=== PATIENT | female | born 1960 | race Caucasian/White ===

== ENCOUNTER 2020-01-12 07:36 | Outpatient (REF) | payer OTHER, SELFPAY ==
[2020-01-12 11:28] LABS: Hematocrit 42.6 % (37-47); Hemoglobin 14.3 g/dl (12.0-16.0); Mean Corpuscular HGB Conc 33.6 g/dl (31.0-35.0); Mean Corpuscular Hemoglobin 33.5 pg (27.0-33.0); Mean Corpuscular Volume 99.8 fL (80-98); Platelet Count 198 X10*3/uL (160-400); Red Blood Count 4.27 X10*6/uL (4.20-5.50); Red Cell Distribution Width 12.3 % (11.0-16.0); White Blood Count 5.7 X10*3/uL (4.8-10.8)
[2020-01-12 11:45] LABS: Glucose Urine UA NEG (NEG); Leukocyte Esterase Urine NEG (NEG); Nitrite Urine NEG (NEG); PH 5.5 (5.0-8.0); Specific Gravity - Urine 1.025 (1.005-1.025); Urine Blood 2+ (NEG); Urine Ketones 5 MG/DL (NEG); Urine Protein NEG (NEG-TRACE)
[2020-01-12 11:48] LABS: Appearance Urine CLEAR; Color Urine YELLOW
[2020-01-12 12:02] LABS: Alanine Aminotransferase 29 U/L (0-31); Albumin Level 4.5 g/dL (3.5-5.0); Alkaline Phosphatase 42 U/L (39-117); Anion Gap 11 (12-20); Aspartate Amino Transferase 20 U/L (5-31); Bilirubin Total 0.7 mg/dL (0.0-1.0); Blood Urea Nitrogen 19 mg/dL (9-16); Calcium 9.1 mg/dL (8.4-10.2); Carbon Dioxide 28 mmol/L (22-29); Chloride 106 mmol/L (96-108); Cholesterol 287 mg/dL; Estimated Glomerular Filt Rate > 60; Glucose Fasting 84 mg/dL (60-99); HDL Cholesterol 92 mg/dL; LDL Cholesterol Calculated 185 mg/dl; Potassium 4.5 mmol/l (3.3-5.1); Sodium 140 mmol/L (135-145); Total Protein 6.9 g/dL (6.5-8.0); Triglycerides 53 mg/dL
[2020-01-12 12:30] LABS: Squamous Epithelial Cell Urine 1+ /LPF
== END 2020-01-12 07:37 | disposition home or self-care (01) ==
LOC: HO.HMGCLDS 07:36
PROVIDERS: PCP Internal Medicine; Visit Provider Internal Medicine
DX: Z00.00 Encounter for general adult medical examination without abnormal findings (principal); M81.0 Age-related osteoporosis without current pathological fracture; E78.2 Mixed hyperlipidemia
CPT/HCPCS: 36415; 80053; 80061; 81001; 82306; 85027

== ENCOUNTER → 2020-01-17 08:59 | Outpatient (BNVA) | payer OTHER, SELFPAY | PROVIDERS: PCP Internal Medicine; Visit Provider Student in an Organized Health Care Education/Training Program | DX: Z76.89 Persons encountering health services in other specified circumstances (principal) ==

== ENCOUNTER 2020-03-04 08:49 | Outpatient (REF) | payer OTHER, SELFPAY ==
--- NOTE | 2020-03-04 08:54 | MM_ITS ---
EXAMINATION: MM SCREENING DIGITAL BREAST TOMOSYNTHESIS, BILATERAL CLINICAL INFORMATION: Screening. Asymptomatic. The lifetime risk of breast cancer based on the Tyrer-Cuzick Model is 6%. COMPARISON: Mammography: 02/27/2019, 12/28/2017 TECHNIQUE: Digital breast tomosynthesis is performed in both the craniocaudal and mediolateral oblique views along with computer-aided detection (CAD). Synthesized 2D images are generated from the tomosynthesis. FINDINGS: There are scattered areas of fibroglandular density (ACR BI-RADS breast composition Category b). There are no significant masses, abnormal calcifications, or other abnormalities. The axilla and skin contours are unremarkable. No significant changes. MM/MM tomosynthesis screening BI IMPRESSION: No mammographic evidence of malignancy. ASSESSMENT: BI-RADS 1: Negative RECOMMENDATION: Routine annual mammography screening. This patient's information was entered into a reminder system with a target due date for their next mammogram.
== END 2020-03-04 08:50 | disposition home or self-care (01) ==
LOC: HO.MAMMO 08:49
PROVIDERS: PCP Internal Medicine; Visit Provider Internal Medicine
DX: Z12.31 Encounter for screening mammogram for malignant neoplasm of breast (principal)
CPT/HCPCS: 77063; 77067

== ENCOUNTER 2020-04-11 06:40 | Outpatient (REF) | payer OTHER, SELFPAY ==
[2020-04-11 11:59] LABS: Alanine Aminotransferase 29 U/L (0-31); Albumin Level 4.4 g/dL (3.5-5.0); Alkaline Phosphatase 45 U/L (39-117); Anion Gap 12 (12-20); Aspartate Amino Transferase 23 U/L (5-31); Bilirubin Total 0.7 mg/dL (0.0-1.0); Blood Urea Nitrogen 16 mg/dL (9-16); Calcium 8.6 mg/dL (8.4-10.2); Carbon Dioxide 28 mmol/L (22-29); Chloride 104 mmol/L (96-108); Cholesterol 225 mg/dL; Estimated Glomerular Filt Rate > 60; Glucose Fasting 86 mg/dL (60-99); HDL Cholesterol 90 mg/dL; LDL Cholesterol Calculated 122 mg/dl; Sodium 140 mmol/L (135-145); Total Protein 6.6 g/dL (6.5-8.0); Triglycerides 67 mg/dL
[2020-04-16 16:07] LABS: Vitamin D 25-OH, D2 <4 ng/mL; Vitamin D 25-OH, D3 38 ng/mL; Vitamin D 25-OH, Total 38 ng/mL (30-100)
== END 2020-04-11 06:41 | disposition home or self-care (01) ==
LOC: HO.HMGCLDS 06:40
PROVIDERS: Student in an Organized Health Care Education/Training Program; PCP Internal Medicine; Visit Provider Internal Medicine
DX: M81.0 Age-related osteoporosis without current pathological fracture (principal); E78.5 Hyperlipidemia, unspecified
CPT/HCPCS: 80053; 80061; 82306

== ENCOUNTER 2020-11-29 06:34 | Outpatient (REF) | payer OTHER, SELFPAY ==
[2020-11-29 11:39] LABS: Hematocrit 41.9 % (37-47); Mean Corpuscular HGB Conc 33.4 g/dl (31.0-35.0); Mean Corpuscular Hemoglobin 33.3 pg (27.0-33.0); Mean Corpuscular Volume 99.5 fL (80-98); Mean Platelet Volume 10.1 fL (9.4-12.3); Platelet Count 243 X10*3/uL (160-400); Red Blood Count 4.21 X10*6/uL (4.20-5.50); Red Cell Distribution Width 12.3 % (11.0-16.0); White Blood Count 7.2 X10*3/uL (4.8-10.8)
[2020-11-29 12:05] LABS: Alanine Aminotransferase 26 U/L (0-31); Albumin Level 4.4 g/dL (3.5-5.0); Alkaline Phosphatase 58 U/L (39-117); Anion Gap 13 (12-20); Aspartate Amino Transferase 20 U/L (5-31); Bilirubin Total 0.6 mg/dL (0.0-1.0); Blood Urea Nitrogen 16 mg/dL (9-16); Calcium 9.4 mg/dL (8.4-10.2); Carbon Dioxide 28 mmol/L (22-29); Chloride 105 mmol/L (96-108); Cholesterol 222 mg/dL; Estimated Glomerular Filt Rate > 60; Glucose Fasting 85 mg/dL (60-99); HDL Cholesterol 85 mg/dL; LDL Cholesterol Calculated 127 mg/dl; Potassium 4.9 mmol/L (3.3-5.1); Sodium 141 mmol/L (135-145); Total Protein 6.9 g/dL (6.5-8.0); Triglycerides 51 mg/dL
[2020-11-29 12:30] LABS: TSH reflex Free T4 1.08 uIU/mL (0.32-4.0)
== END 2020-11-29 06:35 | disposition home or self-care (01) ==
LOC: HO.HMGCLDS 06:34
PROVIDERS: PCP Internal Medicine; Visit Provider Internal Medicine
DX: Z00.00 Encounter for general adult medical examination without abnormal findings (principal); E78.5 Hyperlipidemia, unspecified; M81.0 Age-related osteoporosis without current pathological fracture
CPT/HCPCS: 36415; 80053; 80061; 84443; 85027

== ENCOUNTER 2021-01-06 06:55 | Outpatient (REF) | payer OTHER, SELFPAY ==
[2021-01-06 08:46] LABS: SARS COV2 IgG Negative (Negative)
== END 2021-01-06 06:56 | disposition home or self-care (01) ==
LOC: HO.LAB 06:55
PROVIDERS: PCP Internal Medicine; Visit Provider Internal Medicine
DX: Z20.822 Contact with and (suspected) exposure to COVID-19 (principal)
CPT/HCPCS: 36415; 86769

== ENCOUNTER → 2021-02-19 09:38 | Outpatient (BNVA) | payer OTHER, SELFPAY | PROVIDERS: PCP Internal Medicine; Visit Provider Nurse Practitioner Family ==

== ENCOUNTER 2021-05-19 08:14 | Outpatient (REF) | payer OTHER, SELFPAY ==
--- NOTE | ~2021-05-19 | MM_ITS ---
EXAMINATION: MM SCREENING DIGITAL BREAST TOMOSYNTHESIS, BILATERAL CLINICAL INFORMATION: Screening. Asymptomatic. The lifetime risk of breast cancer based on the Tyrer-Cuzick Model is 6%. COMPARISON: Mammography: 03/04/2020, 02/27/2019, 12/28/2017 TECHNIQUE: Digital breast tomosynthesis is performed in both the craniocaudal and mediolateral oblique views along with computer-aided detection (CAD). Synthesized 2D images are generated from the tomosynthesis. FINDINGS: There are scattered areas of fibroglandular density (ACR BI-RADS breast composition Category b). There are no significant masses, abnormal calcifications, or other abnormalities. Breast tissue borders on heterogeneously dense in the upper outer quadrants. Parenchymal pattern is similar to prior studies. There are no significant changes. MM/MM tomosynthesis screening BI IMPRESSION: No mammographic evidence of malignancy. ASSESSMENT: BI-RADS 1: Negative RECOMMENDATION: Routine annual mammography screening. This patient's information was entered into a reminder system with a target due date for their next mammogram.
== END 2021-05-19 08:15 | disposition home or self-care (01) ==
LOC: HO.MAMMO 08:14
PROVIDERS: PCP Internal Medicine; Visit Provider Internal Medicine
DX: Z12.31 Encounter for screening mammogram for malignant neoplasm of breast (principal)
CPT/HCPCS: 77063; 77067

== ENCOUNTER 2022-01-07 08:01 | Outpatient (REF) | payer OTHER, SELFPAY ==
--- NOTE | ~2022-01-07 | MM_ITS ---
EXAMINATION: BONE DENSITOMETRY CLINICAL INDICATION: Age-related osteoporosis without current pathological fracture. COMPARISON: Previous BD dated 01/01/2020 and baseline BD dated 11/04/1999. TECHNIQUE: Using a [employer] DXA System (software version: 13.1) manufactured by [employer], dual-energy x-ray absorptiometry was performed of the lumbar spine and left hip. The images are of good technical quality. Summary results are attached. FINDINGS: AP SPINE L1-L4: Current: BMD 0.867 g/cm2, Z-score -0.8, T-score -2.6, osteoporosis, 5.2% decrease from previous, 11.3% decrease from baseline (<5% change is not significant). Prior: BMD 0.915 g/cm2. Baseline: BMD 0.978 g/cm2. LEFT FEMUR, NECK: Current: BMD 0.829 g/cm2, Z-score 0.1, T-score -1.5, osteopenia. Prior: BMD 0.849 g/cm2. Baseline: BMD 0.871 g/cm2. LEFT FEMUR, TOTAL: Current: BMD 0.953 g/cm2, Z-score 0.9, T-score -0.4, normal, 0.9% decrease from previous, 1.4% decrease from baseline (<5% change is not significant). Prior: BMD 0.962 g/cm2. Baseline: BMD 0.967 g/cm2. IDENTIFIED RISK FACTORS: Early menopause, secondary osteoporosis. HISTORY OF FRACTURE: None listed. MEDICATIONS: Calcium supplements or multivitamin, vitamin D, bisphosphonate. MM/XR DEXA axial skeleton IMPRESSION: 1. DIAGNOSIS: Osteoporosis based on the lowest T-score value of -2.6 in the lumbar spine applying World Health Organization criteria. 2. 10-YEAR FRACTURE RISK PREDICTION, FRAX: According to the guidelines, FRAX calculation should only be performed on patients in the osteopenia bone density category. Therefore, FRAX was not performed on this patient. 3. Treatment Recommendations: NOF guidelines recommend consideration for treatment in postmenopausal women and men age 50 and older presenting with the following: -A hip or vertebral (clinical or morphometric) fracture. -T-score less than or equal to -2.5 at the femoral neck or spine after appropriate evaluation to exclude secondary causes. -Low bone mass at the hip or spine and a 10-year fracture probability by FRAX of greater than or equal to 3% for hip fracture or greater than or equal to 20% for major osteoporotic fracture based on the [place] adapted WHO algorithm. 4. Other Recommendations: All treatment decisions require clinical judgment and consideration of individual patient factors, including patient preferences, comorbidities, previous drug use, risk factors not captured in the FRAX model (e.g. frailty, falls, vitamin D deficiency, increased bone turnover, interval significant decline in bone density) and possible under or overestimation of fracture risk by FRAX. Additional medical evaluation for secondary cause of low bone mineral density may be appropriate. FUTURE SCAN RECOMMENDATION: People with diagnosed cases of osteoporosis or at high risk for fracture should have regular bone mineral density tests. For patients eligible for Medicare, routine testing is allowed once every 2 years. The testing frequency can be increased to one year for patients who have rapidly progressing disease, those who are receiving or discontinuing medical therapy to restore bone mass, or have additional risk factors.
== END 2022-01-07 08:02 | disposition home or self-care (01) ==
LOC: HO.MAMMO 08:01
PROVIDERS: PCP Internal Medicine; Visit Provider Nurse Practitioner Family
DX: M81.0 Age-related osteoporosis without current pathological fracture (principal)
CPT/HCPCS: 77080

== ENCOUNTER 2022-02-18 13:57 | Outpatient (REF) | payer OTHER, SELFPAY ==
[2022-02-21 21:42] LABS: HPV mRNA E6/E7 Not Detected (Not Detected)
== END 2022-02-18 13:58 | disposition home or self-care (01) ==
LOC: HO.LNP 13:57
PROVIDERS: Visit Provider Internal Medicine
DX: Z01.419 Encounter for gynecological examination (general) (routine) without abnormal findings (principal); Z11.51 Encounter for screening for human papillomavirus (HPV)
CPT/HCPCS: 87624; 88142

== ENCOUNTER 2022-02-21 06:47 | Outpatient (REF) | payer OTHER, SELFPAY ==
[2022-02-21 11:49] LABS: MANUAL DIFF FLAG NO
[2022-02-21 11:55] LABS: Basophils Absolute Auto 0.1 X10*3/uL (0.0-0.2); Basophils Percent Auto 1.5 % (0-2); Eosinophils Absolute Auto 0.3 X10*3/uL (0.0-0.4); Eosinophils Percent Auto 4.4 % (0-4); Hematocrit 42.4 % (37.0-47.0); Hemoglobin 14.4 g/dl (12.0-16.0); Imm Gran Abs Auto 0.01 X10*3/uL (0.00-0.03); Imm Gran Pct Auto 0.1 % (0.0-0.4); Lymphocytes Percent Auto 43.6 % (20-40); Mean Platelet Volume 10.1 fL (9.4-12.3); Monocytes Absolute Auto 0.5 X10*3/uL (0.1-1.2); Monocytes Percent Auto 7.5 % (2-11); Neutrophils Absolute Auto 2.9 x10*3/uL (2.0-8.3); Neutrophils Percent Auto 42.9 % (45-73); Platelet Count 226 X10*3/uL (160-400); Red Blood Count 4.24 X10*6/uL (4.20-5.50); Red Cell Distribution Width 13.3 % (11.0-16.0); White Blood Count 6.8 X10*3/uL (4.8-10.8)
[2022-02-21 12:15] LABS: Alanine Aminotransferase 20 U/L (0-31); Albumin Level 4.5 g/dL (3.5-5.0); Alkaline Phosphatase 72 U/L (39-117); Anion Gap 14 (12-20); Aspartate Amino Transferase 20 U/L (5-31); Bilirubin Total 0.6 mg/dL (0.0-1.0); Blood Urea Nitrogen 18 mg/dL (9-16); Calcium 9.4 mg/dL (8.4-10.2); Carbon Dioxide 28 mmol/L (22-29); Chloride 105 mmol/L (96-108); Cholesterol 242 mg/dL; Estimated Glomerular Filt Rate > 60; Glucose Fasting 92 mg/dL (60-99); HDL Cholesterol 94 mg/dL; LDL Cholesterol Calculated 140 mg/dl; Potassium 4.5 mmol/L (3.3-5.1); Sodium 142 mmol/L (135-145); Total Protein 6.9 g/dL (6.5-8.0); Triglycerides 40 mg/dL
[2022-02-21 12:28] LABS: TSH reflex Free T4 0.65 uIU/mL (0.32-4.0)
[2022-02-21 15:17] LABS: Vitamin D 25-OH Total 76.4 ng/mL (>30)
== END 2022-02-21 06:48 | disposition home or self-care (01) ==
LOC: HO.HMGCLDS 06:47
PROVIDERS: PCP Internal Medicine; Visit Provider Internal Medicine
DX: Z00.00 Encounter for general adult medical examination without abnormal findings (principal); E78.5 Hyperlipidemia, unspecified; M81.0 Age-related osteoporosis without current pathological fracture
CPT/HCPCS: 36415; 80053; 80061; 82306; 84443; 85025

== ENCOUNTER 2022-05-25 07:49 | Outpatient (REF) | payer OTHER, SELFPAY ==
--- NOTE | ~2022-05-25 | MM_ITS ---
EXAMINATION: MM SCREENING DIGITAL BREAST TOMOSYNTHESIS, BILATERAL CLINICAL INFORMATION: Screening. Asymptomatic. The lifetime risk of breast cancer based on the Tyrer-Cuzick Model is 6%. COMPARISON: Mammography: 05/19/2021, 03/04/2020, 02/27/2019, 12/28/2017 TECHNIQUE: Digital breast tomosynthesis is performed in both the craniocaudal and mediolateral oblique views along with computer-aided detection (CAD). Synthesized 2D images are generated from the tomosynthesis. FINDINGS: There are scattered areas of fibroglandular density (ACR BI-RADS breast composition Category b). Breast tissue borders on heterogeneously dense. Parenchymal pattern is similar to prior studies and there is no developing density or interval architectural abnormality. There are no significant masses, abnormal calcifications, or other abnormalities. MM/MM tomosynthesis screening BI IMPRESSION: No mammographic evidence of malignancy. ASSESSMENT: BI-RADS 1: Negative RECOMMENDATION: Routine annual mammography screening. This patient's information was entered into a reminder system with a target due date for their next mammogram.
== END 2022-05-25 07:50 | disposition home or self-care (01) ==
LOC: HO.MAMMO 07:49
PROVIDERS: PCP Internal Medicine; Visit Provider Internal Medicine
DX: Z12.31 Encounter for screening mammogram for malignant neoplasm of breast (principal)
CPT/HCPCS: 77063; 77067

== ENCOUNTER → 2022-06-10 07:40 | Outpatient (BNVA) | payer OTHER, SELFPAY | PROVIDERS: PCP Internal Medicine; Visit Provider Nurse Practitioner Family | DX: Z13.89 Encounter for screening for other disorder (principal) ==

== ENCOUNTER 2022-11-20 06:35 | Outpatient (REF) | payer OTHER, SELFPAY ==
[2022-11-20 11:32] LABS: MANUAL DIFF FLAG NO
[2022-11-20 11:48] LABS: Basophils Absolute Auto 0.1 X10*3/uL (0.0-0.2); Basophils Percent Auto 1.3 % (0-2); Eosinophils Absolute Auto 0.4 X10*3/uL (0.0-0.4); Hematocrit 41.5 % (37.0-47.0); Hemoglobin 14.1 g/dl (12.0-16.0); Imm Gran Abs Auto 0.01 X10*3/uL (0.00-0.03); Imm Gran Pct Auto 0.1 % (0.0-0.4); Lymphocytes Absolute Auto 3.2 X10*3/uL (1.2-4.9); Lymphocytes Percent Auto 44.8 % (20-40); Mean Corpuscular Hemoglobin 33.3 pg (27.0-33.0); Mean Corpuscular Volume 98.1 fL (80.0-98.0); Mean Platelet Volume 9.9 fL (9.4-12.3); Monocytes Absolute Auto 0.5 X10*3/uL (0.1-1.2); Monocytes Percent Auto 7.2 % (2-11); Neutrophils Absolute Auto 2.9 x10*3/uL (2.0-8.3); Neutrophils Percent Auto 40.6 % (45-73); Platelet Count 207 X10*3/uL (160-400); Red Blood Count 4.23 X10*6/uL (4.20-5.50); Red Cell Distribution Width 12.8 % (11.0-16.0); White Blood Count 7.2 X10*3/uL (4.8-10.8)
[2022-11-20 12:39] LABS: Alanine Aminotransferase 19 U/L (0-31); Albumin Level 4.2 g/dL (3.5-5.0); Alkaline Phosphatase 53 U/L (39-117); Anion Gap 12 (12-20); Aspartate Amino Transferase 19 U/L (5-31); Bilirubin Total 0.6 mg/dL (0.0-1.0); Blood Urea Nitrogen 15 mg/dL (9-16); Calcium 9.7 mg/dL (8.4-10.2); Carbon Dioxide 26 mmol/L (22-29); Chloride 107 mmol/L (96-108); Cholesterol 227 mg/dL; Estimated Glomerular Filt Rate > 60; Glucose Fasting 93 mg/dL (60-99); HDL Cholesterol 78 mg/dL; LDL Cholesterol Calculated 137 mg/dl; Potassium 4.4 mmol/L (3.3-5.1); Sodium 141 mmol/L (135-145); Total Protein 6.8 g/dL (6.5-8.0); Triglycerides 60 mg/dL
[2022-11-20 12:42] LABS: Vitamin D 25-OH Total 95.2 ng/mL (>30)
== END 2022-11-20 06:36 | disposition home or self-care (01) ==
LOC: HO.HMGCLDS 06:35
PROVIDERS: PCP Internal Medicine; Visit Provider Internal Medicine
DX: E78.5 Hyperlipidemia, unspecified (principal); M81.0 Age-related osteoporosis without current pathological fracture
CPT/HCPCS: 36415; 80053; 80061; 82306; 85025

== ENCOUNTER 2022-11-25 07:50 | Outpatient (AMB) | payer OTHER, SELFPAY ==
[2022-11-25 07:53] VITALS: BP 102/64; PULSE 74; O2SAT 98; BMI 24.0
--- NOTE | 2022-11-25 07:53 | A.OFFPC_ITS ---
Vital Signs 11/25/22 07:53 Height 4 ft 11 in Weight 119 lb BMI 24.0 BP 102/64 Blood Pressure Location Lt brachial Position Sitting Pulse 74 Pulse Source Pulse Oximeter Pulse Oximetry (%) 98 Oxygen Delivery Method Room Air Intake Visit Reasons: PE Intake Note: Pt is here today for PE. Allergies No Known Allergies Allergy (Verified 11/25/22 08:00) Medication List - Last Reconciled 11/25/22 by Adriana Galvez MD cholecalciferol (vitamin D3) 50 mcg PO .twice a day coenzyme [id number] E 100-100 mg-unit caps PO .three times a day magnesium glycinate 100 mg PO DAILY omega 3,6,9 combination no.7 ([place] DHA) mg PO pravastatin 10 mg PO DAILY [id number]-bzcw-krwmn-oreg-capryl PO vitamin B complex 1 tab PO DAILY vitamin K2 40 mcg PO DAILY Tobacco use date assessed: 11/25/22 Dental Screening Dental Screen Date: 11/25/22 Did you have a dental visit in the last 12 months?: Yes Did you have a dental problem in the last 6 months where you did not have access to dental care?: No Was dental information given to patient?: Patient has dentist HPI PE HPI Details Pt presents for PE. Patient complains of intermittent lower back pain radiating to left buttock worse when standing for long time. 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 She denies pain radiating to left lower extremity, weakness numbness in extremities. Patient has been exercising regularly and reports improvement in her back pain. Patient would like to stop taking statin and check lipid profile off a statin. [facility] Medical History (Updated 11/25/22 @ 08:34 by Adriana Galvez MD) Annual physical exam Hyperlipidemia Idiopathic hematuria Internal hemorrhoid Mammogram normal Nephrolithiasis Normal Pap smear Osteoporosis Surgical History delivery delivered H/O colonoscopy Family History Father Lung cancer Mother No problems noted. Maternal Aunt Lung cancer Liver cancer Breast cancer Maternal Grandfather No problems noted. Maternal Grandmother No problems noted. Paternal Grandfather No problems noted. Paternal Grandmother No problems noted. Brother Mental health disorder Social History Household Members: Spouse Housing: House Are you a primary healthcare translator to a significant other at home: No Do you presently have visiting nurse or other home services: No Alcohol intake: current Alcohol intake frequency: a few times a week Alcohol type: hard liquor Patient Tobacco Use Status: Never used Tobacco e-Cigarette/Vaping Use: Never Used service: No Current occupational status: employed Cognitive needs: No Hearing needs: No Vision needs: Yes Questionnaire Thrive Questionnaire Date Thrive assessed: 11/19/21 AUDIT C Alcohol Use Questionnaire (AUDIT-C) 1. How often do you have a drink containing alcohol?: 2-4 times a month 2. How many drinks containing alcohol do you have on a typical day when you are drinking?: 1 or 2 3. How often do you have six or more drinks on one occasion?: Never Total Score: 2 MORALES-7 AMB Questionnaire MORALES-7 Date MORALES - 7 assessed: 11/19/21 Source: Developed by Drs. Brian Barbosa, Manasa Alicea, Husam Ponce and colleagues, with an educational parveen from [employer]. Review of Systems Const All systems reviewed & are unremarkable except as noted in HPI and below Reports no additional complaints Eyes Reports no additional complaints ENT Reports no additional complaints Card Reports no additional complaints Resp Reports no additional complaints GI Reports no additional complaints Reports no additional complaints Physical exam (Primary Care) Vital Signs: Last Vital Signs Pulse 74 11/25/22 07:53 BP 102/64 11/25/22 07:53 Pulse Ox 98 11/25/22 07:53 Oxygen Delivery Method Room Air 11/25/22 07:53 BMI result Body Mass Index 24.0 Tobacco/Smoking Status: Tobacco use Status Tobacco use date assessed 11/25/22 11/25/22 08:03 Patient Tobacco Use Status Never used Tobacco 11/25/22 08:03 e-Cigarette/Vaping Use Never Used 11/25/22 07:53 Thrive Assessment: Date of Thrive Assessment Date Thrive assessed 11/19/21 11/25/22 07:53 Const General: no acute distress HENMT Head: Yes normal to inspection General nose exam: Normal external nose present Face and sinus: Yes normal facial exam Mouth: Normal oral and palatal mucosa present Throat: Yes posterior oropharynx normal Eyes General: appearance normal, both eyes and all related structures Neck Neck: Yes no lymphadenopathy and Yes supple Resp Effort & Inspection: normal respiratory effort Auscultation: clear to auscultation bilaterally Cardio Rhythm: regular rhythm Heart sounds: S1 normal heart sound present and S2 normal heart sound present GI Inspection: Yes normal to inspection Palpation (GI): Soft to palpation Percussion: Yes normal to percussion Auscultation: normal bowel sounds Back/Spine/Pelvis Other: Full range of motion lower lumbar spine, straight leg rising 90 degrees bilaterally, full range of motion both hips Assessment and Plan Assessment & Plan (1) Chronic lower back pain: Code(s): M54.50 - Low back pain, unspecified; G89.29 - Other chronic pain Plan: Patient was advised to continue lower back exercises. Lumbar spine x-ray will be obtained to evaluate for disc disease (2) Hyperlipidemia: Code(s): E78.5 - Hyperlipidemia, unspecified Plan: Patient will stop pravastatin for 3 months and have lipid profile checked afterwards. In the LDL cholesterol is high patient will restart pravastatin (3) Normal Pap smear: Comment: 2021 (4) Annual physical exam: Code(s): Z00.00 - Encounter for general adult medical examination without abnormal findings Plan: Well-balanced diet and regular exercise discussed with the patient. She is up-to-date with mammogram and colonoscopy (5) Osteoporosis: Comment: Alendronate: started 07/2018 - January 2020- stopped per patient request DEXA 12/2019 T score -2.2 increased 5.7% after 1.5 years of Fosamax Fosamax 07/2018-01/2020 Code(s): M81.0 - Age-related osteoporosis without current pathological fracture Qualifiers: Osteoporosis type: age-related Presence of current pathological fracture: without current pathological fracture Qualified Code(s): M81.0 - Age- related osteoporosis without current pathological fracture Plan: Patient has been taking vitamin D supplement and exercising regularly. She is due for repeat DEXA next December Orders: Orders XR lumbar spine 2-3V Today G89.29 - Other chronic pain, M54.50 - Low back pain, unspecified Lipid Panel 2 Months E78.5 - Hyperlipidemia, unspecified Comprehensive Honeydew. Panel Fast 365 Days E78.5 - Hyperlipidemia, unspecified, M81.0 - Age-related osteoporosis without current pathological fracture, Z00.00 - Encounter for general adult medical examination without abnormal findings Lipid Panel 365 Days E78.5 - Hyperlipidemia, unspecified, M81.0 - Age-related osteoporosis without current pathological fracture, Z00.00 - Encounter for general adult medical examination without abnormal findings TSH reflex Free T4 365 Days E78.5 - Hyperlipidemia, unspecified, M81.0 - Age- related osteoporosis without current pathological fracture, Z00.00 - Encounter for general adult medical examination without abnormal findings Vitamin D 25-OH Total 365 Days E78.5 - Hyperlipidemia, unspecified, M81.0 - Age- related osteoporosis without current pathological fracture, Z00.00 - Encounter for general adult medical examination without abnormal findings Complete Blood Count Auto Diff 365 Days E78.5 - Hyperlipidemia, unspecified, M81.0 - Age-related osteoporosis without current pathological fracture, Z00.00 - Encounter for general adult medical examination without abnormal findings Coding Level of Care Code Est Pt Prev Care 40-64y(69023) Diagnoses Chronic lower back pain M54.50; G89.29 Hyperlipidemia E78.5 Normal Pap smear Annual physical exam Z00.00 Osteoporosis M81.0 Osteoporosis type: age-related Presence of current pathological fracture: without current pathological fracture
== END 2022-11-25 08:39 | disposition home or self-care (01) ==
PROVIDERS: Visit Provider Internal Medicine
DX: M54.50 Low back pain, unspecified (principal); G89.29 Other chronic pain; E78.5 Hyperlipidemia, unspecified; Z00.00 Encounter for general adult medical examination without abnormal findings; M81.0 Age-related osteoporosis without current pathological fracture
CPT/HCPCS: 99396

== ENCOUNTER 2022-11-25 08:25 | Outpatient (REF) | payer OTHER, SELFPAY ==
--- NOTE | ~2022-11-25 | XR_ITS ---
EXAMINATION: XR LUMBOSACRAL SPINE CLINICAL INFORMATION: Low back pain COMPARISON: None available. TECHNIQUE: Three views of the lumbosacral spine. FINDINGS: Punctate 2 mm calcification projects over the mid to upper pole of the right kidney, possibly a renal calculus. Facet arthritis in the lower lumbar spine. Advanced degenerative changes at L5-S1 with loss of disc space height and subchondral sclerosis. XR/XR lumbar spine 2-3V IMPRESSION: Punctate 2 mm calcification projects over the mid to upper pole of the right kidney, possibly a renal calculus. Advanced degenerative changes at L5-S1.
== END 2022-11-25 08:26 | disposition home or self-care (01) ==
LOC: HO.HMGCX 08:25
PROVIDERS: PCP Internal Medicine; Visit Provider Internal Medicine
DX: M54.50 Low back pain, unspecified (principal); G89.29 Other chronic pain
CPT/HCPCS: 72100

== ENCOUNTER 2022-12-16 09:39 | Outpatient (REF) | payer OTHER, SELFPAY ==
--- NOTE | ~2022-12-16 | US_ITS ---
EXAMINATION: US RETROPERITONEAL LIMITED (RENAL ONLY) CLINICAL INFORMATION: Calculus of kidney. COMPARISON: None available. TECHNIQUE: Real-time imaging of the kidneys. FINDINGS: RIGHT KIDNEY: 9.6 x 6.3 x 5.1 cm (SAG x AP x TRV). The kidney is normal in size, contour, and echogenicity. Renal cortical thickness is normal. No calculi or focal parenchymal lesions. No hydronephrosis. LEFT KIDNEY: 10.2 x 5.1 x 6.0 cm (SAG x AP x TRV). The kidney is normal in size, contour, and echogenicity. Renal cortical thickness is normal. No calculi or focal parenchymal lesions. No hydronephrosis. US/US renal BI IMPRESSION: No hydronephrosis or nephrolithiasis..
== END 2022-12-16 09:40 | disposition home or self-care (01) ==
LOC: HO.HMGCX 09:39
PROVIDERS: PCP Internal Medicine; Visit Provider Internal Medicine
DX: N20.0 Calculus of kidney (principal)
CPT/HCPCS: 76775

== ENCOUNTER 2023-03-02 06:37 | Outpatient (REF) | payer OTHER, SELFPAY ==
[2023-03-02 11:43] LABS: Cholesterol 250 mg/dL (<200); HDL Cholesterol 82 mg/dL (>40); LDL Cholesterol Calculated 153 mg/dL (<100); Triglycerides 78 mg/dL (<150)
== END 2023-03-02 06:38 | disposition home or self-care (01) ==
LOC: HO.HMGCLDS 06:37
PROVIDERS: PCP Internal Medicine; Visit Provider Internal Medicine
DX: E78.5 Hyperlipidemia, unspecified (principal)
CPT/HCPCS: 36415; 80061

== ENCOUNTER 2023-05-17 11:04 | Outpatient (AMB) | payer OTHER, SELFPAY ==
--- NOTE | 2023-05-17 11:46 | A.OFFPC_ITS ---
Vital Signs 05/17/23 11:47 Height 4 ft 11 in Weight 128 lb BMI 25.9 BP 120/78 Blood Pressure Location Lt brachial Position Sitting Pulse 79 Pulse Source Pulse Oximeter Pulse Oximetry (%) 97 Oxygen Delivery Method Room Air Intake Visit Reasons: Ongoing cough x 6 weeks Intake Note: Pt is here today for a sick visit. Pt c/o cough for 6 weeks now. Allergies No Known Allergies Allergy (Verified 05/17/23 11:53) Tobacco use date assessed: 05/17/23 Fall risk assessment: No Falls in past year Last assessed Fall Risk: 05/17/23 Dental Screening Dental Screen Date: 05/17/23 Did you have a dental visit in the last 12 months?: Yes Did you have a dental problem in the last 6 months where you did not have access to dental care?: No Was dental information given to patient?: Patient has dentist HPI Ongoing cough x 6 weeks HPI Details Pt presents c/o persistent dry cough for 2 months. Pt postnasal drip on and off. Pt reports intermittent wheezing. Patient denies dyspnea on exertion PND orthopnea fever chills night sweats. she has been exercising regularly at the gym at least 3 times a week Duration [facility] Medical History (Updated 05/17/23 @ 12:32 by Adriana Galvez MD) Annual physical exam Normal Pap smear Mammogram normal Hyperlipidemia Idiopathic hematuria Internal hemorrhoid Nephrolithiasis Osteoporosis Surgical History H/O colonoscopy delivery delivered Family History Father Lung cancer Mother No problems noted. Maternal Aunt Lung cancer Liver cancer Breast cancer Maternal Grandfather No problems noted. Maternal Grandmother No problems noted. Paternal Grandfather No problems noted. Paternal Grandmother No problems noted. Brother Mental health disorder Social History Household Members: Spouse Housing: House Are you a primary nurse behavioral health care to a significant other at home: No Do you presently have visiting nurse or other home services: No 75 years or older and lives alone: No Alcohol intake: current Alcohol intake frequency: a few times a week Alcohol type: hard liquor Patient Tobacco Use Status: Never used Tobacco e-Cigarette/Vaping Use: Never Used service: No Current occupational status: employed Cognitive needs: No Hearing needs: No Vision needs: Yes Questionnaire Thrive Questionnaire Date Thrive assessed: 11/19/21 AUDIT C Alcohol Use Questionnaire (AUDIT-C) 1. How often do you have a drink containing alcohol?: 2-4 times a month 2. How many drinks containing alcohol do you have on a typical day when you are drinking?: 1 or 2 3. How often do you have six or more drinks on one occasion?: Never Total Score: 2 MORALES-7 AMB Questionnaire MORALES-7 Date MORALES - 7 assessed: 11/19/21 Source: Developed by Drs. Brian Barbosa, Manasa Alicea, Husam Ponce and colleagues, with an educational parveen from [employer]. Review of Systems Const All systems reviewed & are unremarkable except as noted in HPI and below Reports no additional complaints Eyes Reports no additional complaints ENT Reports no additional complaints Card Reports no additional complaints Resp Reports no additional complaints GI Reports no additional complaints Reports no additional complaints Physical exam (Primary Care) Vital Signs: Last Vital Signs Pulse 79 05/17/23 11:47 BP 120/78 05/17/23 11:47 Pulse Ox 97 05/17/23 11:47 Oxygen Delivery Method Room Air 05/17/23 11:47 BMI result Body Mass Index 25.9 Tobacco/Smoking Status: Tobacco use Status Tobacco use date assessed 05/17/23 05/17/23 11:54 Patient Tobacco Use Status Never used Tobacco 05/17/23 11:54 e-Cigarette/Vaping Use Never Used 05/17/23 11:50 Thrive Assessment: Date of Thrive Assessment Date Thrive assessed 11/19/21 05/17/23 11:50 Const General: no acute distress HENMT Head: Yes normal to inspection Ears: hearing grossly normal bilaterally Mouth: Normal oral and palatal mucosa present Throat: Yes posterior oropharynx normal and Yes postnasal drainage Eyes General: appearance normal, both eyes and all related structures Neck Neck: Yes no lymphadenopathy and Yes supple Resp Effort & Inspection: normal respiratory effort Auscultation: clear to auscultation bilaterally Cardio Rhythm: regular rhythm Heart sounds: S1 normal heart sound present and S2 normal heart sound present GI Inspection: Yes normal to inspection Palpation (GI): Soft to palpation Assessment and Plan Assessment & Plan (1) Post-viral cough syndrome: Code(s): R05.8 - Other specified cough Plan: For persistent postnasal drip patient was advised to use Flonase and antihistamine for 1 week and call if her symptoms persist Coding Level of Care Code Est Pt Level 3 (63303) Diagnoses Post-viral cough syndrome R05.8
[2023-05-17 11:47] VITALS: BP 120/78; PULSE 79; O2SAT 97; BMI 25.9
== END 2023-05-17 12:21 | disposition home or self-care (01) ==
PROVIDERS: PCP Internal Medicine; Visit Provider Internal Medicine
DX: R05.8 Other specified cough (principal)
CPT/HCPCS: 99213

== ENCOUNTER 2023-06-02 08:18 | Outpatient (REF) | payer OTHER, SELFPAY | END 2023-06-02 08:19 | disposition home or self-care (01) | LOC: HO.MAMMO 08:18 | PROVIDERS: PCP Internal Medicine; Visit Provider Internal Medicine | DX: Z12.31 Encounter for screening mammogram for malignant neoplasm of breast (principal) | CPT/HCPCS: 77063; 77067 ==

== ENCOUNTER → 2023-06-02 08:30 | Outpatient (BNV) | payer OTHER, SELFPAY | PROVIDERS: PCP Internal Medicine; Visit Provider Radiology Diagnostic Radiology | DX: Z12.31 Encounter for screening mammogram for malignant neoplasm of breast (principal) | CPT/HCPCS: 77063; 77067 ==

== ENCOUNTER 2023-06-16 08:58 | Outpatient (AMB) | payer OTHER, SELFPAY ==
--- NOTE | 2023-06-16 09:04 | MHC.OFFVIS ---
Intake Vital Signs 06/16/23 09:07 Height 4 ft 11 in Weight 128 lb 4.944 oz BMI 25.9 BP 110/84 Blood Pressure Location Rt brachial Position Sitting Pulse 78 Pulse Source Pulse Oximeter Temp 97.5 F Temp Source Skin Pulse Oximetry (%) 98 Oxygen Delivery Method Room Air Intake Visit Reasons: 1Y follow up Intake Note: Patient last seen 06/10/22 by Desire, presents today for yearly follow up. 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 Reynolds 62-year-old female returns to for follow-up of her osteoporosis. Patient is doing well and wants to continue the drug holiday from Fosamax. She says she is taking in an adequate supply of calcium and vitamin-D, and doing muscle building activities to help her bones becomes strong. Her medical History includes hypertension, pure hypercholesterolemia. Her risk factors for Osteoporosis includes being postmenopause, a former smoker. She does take a calcium and vitamin-D supplements. She is fairly active, and denies excessive consumption of alcohol. Patient denies history of eating disorder and other concerns for mal-absorption. She denies inflammatory arthritis and family history of fractures. 06/10/2022 visits Desire: 61yoF presents for follow-up of osteoporosis. Last seen in June 30 2022 Patient was started on Fosamax in July 2018, she requested to discontinue January 2020. She states that she did not have any negative side effects from Fosamax, she prefers not to take medications if possible. She reports she received her recent DEXA results in the mail and is not interested in restarting medication for her osteoporosis at this time. Patient offers no complaints today. She continues to exercise regularly approximately 5 days per week including walking and body weight exercises. She continues to take calcium and vitamin D. Denies any recent falls or fractures. PENDING SALE TO [facility] Medical History (Updated 06/17/23 @ 15:13 by FADI [place]) DDD (degenerative disc disease), lumbosacral Annual physical exam Normal Pap smear Mammogram normal Hyperlipidemia Idiopathic hematuria Internal hemorrhoid Nephrolithiasis Osteoporosis Surgical History H/O colonoscopy delivery delivered Family History Father Lung cancer Mother No problems noted. Maternal Aunt Lung cancer Liver cancer Breast cancer Maternal Grandfather No problems noted. Maternal Grandmother No problems noted. Paternal Grandfather No problems noted. Paternal Grandmother No problems noted. Brother Mental health disorder Social History Household Members: Spouse Housing: House Are you a primary acute care occupational therapist to a significant other at home: No Do you presently have visiting nurse or other home services: No 75 years or older and lives alone: No Alcohol intake: current Alcohol intake frequency: a few times a week Alcohol type: hard liquor Patient Tobacco Use Status: Never used Tobacco e-Cigarette/Vaping Use: Never Used service: No Current occupational status: employed Cognitive needs: No Hearing needs: No Vision needs: Yes Review of Systems Const All systems reviewed & are unremarkable except as noted in HPI and below Physical Exam Vital Signs: Last Vital Signs Temp 97.5 F 06/16/23 09:07 Pulse 78 06/16/23 09:07 BP 110/84 06/16/23 09:07 Pulse Ox 98 06/16/23 09:07 Oxygen Delivery Method Room Air 06/16/23 09:07 BMI result Body Mass Index 25.9 APPEARANCE: Patient in no acute distress, groomed, nourished EYES: no redness, eyelids normal EARS: External ear normal. NOSE/SINUS: Airflow through both nares, no nasal discharge, no bleeding THROAT: Oral mucosa moist, no ulcerations HEART: Regular rhythm, S1-S2 heard, no murmurs, rubs or gallops. LUNG: Clear to auscultation, respiratory rate regular nonlabored. EXTREMITIES: No edema, no calf tenderness, normal peripheral pulses. NEURO: Oriented and alert x3. No focal weakness. Gait normal. JOINT EXAM:?? Cervical Spine:? Full range of motion without pain; no tenderness. Thoracic Spine: No scoliosis.? No tenderness on palpation. Lumbar Spine:? Alignment normal.? Full range of motion without pain, no tenderness. Chest Wall: No tenderness, swelling, increased warmth or erythema. Hands:? Normal pain-free range of motion without tenderness, swelling, increased warmth or erythema. 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 Wrists:? Normal pain-free range of motion without tenderness, swelling, increased warmth or erythema. Elbows: Normal pain-free range of motion without tenderness, swelling, increased warmth or erythema. Shoulders:? Full range of motion without pain. No tenderness, weakness, swelling, increased warmth or erythema. Hip bursa:? No tenderness. Knees:?? Normal pain-free range of motion without tenderness.? There is no effusion or crepitation Ankles:? Normal pain-free range of motion without tenderness, swelling, increased warmth or erythema. Results Reviewed Results Reviewed: Laboratory Tests 02/21/22 02/21/22 06:51 06:51 WBC 6.8 Hgb 14.4 Hct 42.4 Plt Count 226 Sodium 142 Potassium 4.5 Chloride 105 BUN 18 H Creatinine 0.80 Fasting Glucose 92 Calcium 9.4 AST 20 ALT 20 25-OH Vitamin D Total 76.4 TSH 0.65 01/07/2022 EXAMINATION: BONE DENSITOMETRY CLINICAL INDICATION: Age-related osteoporosis without current pathological fracture. COMPARISON: Previous BD dated 01/01/2020 and baseline BD dated 11/04/1999. TECHNIQUE: Using a Optichron DXA System (software version: 13.1) manufactured by [employer], dual-energy x-ray absorptiometry was performed of the lumbar spine and left hip. The images are of good technical quality. Summary results are attached. FINDINGS: AP SPINE L1-L4: Current: BMD 0.867 g/cm2, Z-score -0.8, T-score -2.6, osteoporosis, 5.2% decrease from previous, 11.3% decrease from baseline (<5% change is not significant). Prior: BMD 0.915 g/cm2. Baseline: BMD 0.978 g/cm2. LEFT FEMUR, NECK: Current: BMD 0.829 g/cm2, Z-score 0.1, T-score -1.5, osteopenia. Prior: BMD 0.849 g/cm2. Baseline: BMD 0.871 g/cm2. LEFT FEMUR, TOTAL: Current: BMD 0.953 g/cm2, Z-score 0.9, T-score -0.4, normal, 0.9% decrease from previous, 1.4% decrease from baseline (<5% change is not significant). Prior: BMD 0.962 g/cm2. Baseline: BMD 0.967 g/cm2. IDENTIFIED RISK FACTORS: Early menopause, secondary osteoporosis. HISTORY OF FRACTURE: None listed. MEDICATIONS: Calcium supplements or multivitamin, vitamin D, bisphosphonate. MM/XR DEXA axial skeleton IMPRESSION: 1. DIAGNOSIS: Osteoporosis based on the lowest T-score value of -2.6 in the lumbar spine applying World Health Organization criteria.? Patient: Lacey Reynolds MR#: [id number] : 1960 Acct:[id number] Age/Sex: 61 / F ADM Date: 11/25/22 Loc: HO.HMGCX Attending Dr: Adriana Galvez MD Ordering Physician: Adriana Galvez MD Date of Service: 11/25/22 Procedure(s): XR lumbar spine 2-3V Accession Number(s): [id number] cc: Adriana Galvez MD~ EXAMINATION: XR LUMBOSACRAL SPINE CLINICAL INFORMATION: Low back pain COMPARISON: None available. TECHNIQUE: Three views of the lumbosacral spine. FINDINGS: Punctate 2 mm calcification projects over the mid to upper pole of the right kidney, possibly a renal calculus. Facet arthritis in the lower lumbar spine. Advanced degenerative changes at L5-S1 with loss of disc space height and subchondral sclerosis. XR/XR lumbar spine 2-3V IMPRESSION: Punctate 2 mm calcification projects over the mid to upper pole of the right kidney, possibly a renal calculus. Advanced degenerative changes at L5-S1. Laboratory Tests 11/20/22 06:45 WBC 7.2 RBC 4.23 Hgb 14.1 Hct 41.5 Plt Count 207 BUN 15 Creatinine 0.78 Estimated GFR > 60 Calcium 9.7 AST 19 ALT 19 25-OH Vitamin D Total 95.2 Assessment & Plan Assessment & Plan (1) Osteoporosis: Comment: Alendronate: started 07/2018 - January 2020- stopped per patient request DEXA 12/2019 T score -2.2 increased 5.7% after 1.5 years of Fosamax Fosamax 07/2018-01/2020 Code(s): M81.0 - Age-related osteoporosis without current pathological fracture Qualifiers: Osteoporosis type: age-related Presence of current pathological fracture: without current pathological fracture Qualified Code(s): M81.0 - Age-related osteoporosis without current pathological fracture Plan: (2) Chronic lower back pain: Code(s): M54.50 - Low back pain, unspecified; G89.29 - Other chronic pain Qualifiers: Back pain laterality: bilateral Sciatica presence: without sciatica Qualified Code(s): M54.50 - Low back pain, unspecified; G89.29 - Other chronic pain (3) DDD (degenerative disc disease), lumbosacral: Code(s): M51.37 - Other intervertebral disc degeneration, lumbosacral region Plan # Osteoporosis: DEXA December 2019 with T-score -2.2 in lumbar spine, this DEXA was after approximately 2 years of Fosamax. Previous DEXA from December 2017 with T-score -2.5 in lumbar spine. Fosamax discontinued in January 2020 at patient request. DEXA December 2021 with Osteoporosis T-score -2.6 in the lumbar spine, slightly decreased off Fosamax. Reviewed with patient recommendation to restart alendronate. Another option would be Prolia or Reclast. Patient continues to decline to resume treatment for her osteoporosis at this time. Reviewed risks of untreated osteoporosis. Patient verbalized understanding. Advised patient to continue to consume calcium and vitamin-D and weight-bearing exercise daily. Updated DEXA due in 7 months will order. I also will order the lab I suspect patient will be ready at that time to resume treatment if bone density continues to worsen despite self management efforts. 30 minutes spent reviewing chart evaluating patient and documenting. Orders: Orders XR DEXA axial skeleton 7 Months M81.0 - Age-related osteoporosis without current pathological fracture Coding Level of Care Code Est Pt Level 3 (55564) Diagnoses Age-related osteoporosis without current pathological fracture M81.0 Osteoporosis type: age-related Presence of current pathological fracture: without current pathological fracture Chronic bilateral low back pain without sciatica M54.50; G89.29 Back pain laterality: bilateral Sciatica presence: without sciatica DDD (degenerative disc disease), lumbosacral M51.37
[2023-06-16 09:07] VITALS: BP 110/84; PULSE 78; TEMP 36.4; O2SAT 98; BMI 25.9
== END 2023-06-16 09:30 | disposition home or self-care (01) ==
PROVIDERS: PCP Internal Medicine; Visit Provider Nurse Practitioner Family
DX: M81.0 Age-related osteoporosis without current pathological fracture (principal); M54.50 Low back pain, unspecified; G89.29 Other chronic pain; M51.37 Other intervertebral disc degeneration, lumbosacral region
CPT/HCPCS: 99213

== ENCOUNTER → 2023-06-16 08:58 | Outpatient (BNVA) | payer OTHER, SELFPAY | PROVIDERS: PCP Internal Medicine; Visit Provider Nurse Practitioner Family ==

== ENCOUNTER 2023-11-25 06:25 | Outpatient (REF) | payer BC, SELFPAY ==
[2023-11-25 10:00] LABS: MANUAL DIFF FLAG NO
[2023-11-25 10:06] LABS: Basophils Absolute Auto 0.1 X10*3/uL (0.0-0.2); Basophils Percent Auto 1.1 % (0-2); Eosinophils Absolute Auto 0.4 X10*3/uL (0.0-0.4); Eosinophils Percent Auto 5.2 % (0-4); Hematocrit 41.2 % (37.0-47.0); Imm Gran Abs Auto 0.01 X10*3/uL (0.00-0.03); Imm Gran Pct Auto 0.1 % (0.0-0.4); Lymphocytes Absolute Auto 3.9 X10*3/uL (1.2-4.9); Lymphocytes Percent Auto 48.4 % (20-40); Mean Corpuscular Hemoglobin 33.6 pg (27.0-33.0); Mean Corpuscular Volume 98.8 fL (80.0-98.0); Monocytes Absolute Auto 0.5 X10*3/uL (0.1-1.2); Monocytes Percent Auto 6.7 % (2-11); Neutrophils Absolute Auto 3.1 x10*3/uL (2.0-8.3); Neutrophils Percent Auto 38.5 % (45-73); Platelet Count 216 X10*3/uL (160-400); Red Blood Count 4.17 X10*6/uL (4.20-5.50); Red Cell Distribution Width 12.8 % (11.0-16.0); White Blood Count 8.1 X10*3/uL (4.8-10.8)
[2023-11-25 10:26] LABS: Alanine Aminotransferase 15 U/L (0-31); Albumin Level 4.3 g/dL (3.5-5.0); Alkaline Phosphatase 52 U/L (39-117); Anion Gap 14 (12-20); Aspartate Amino Transferase 18 U/L (5-31); Bilirubin Total 0.6 mg/dL (0.0-1.0); Blood Urea Nitrogen 18 mg/dL (9-16); Calcium 9.3 mg/dL (8.4-10.2); Carbon Dioxide 23 mmol/L (22-29); Chloride 107 mmol/L (96-108); Cholesterol 242 mg/dL (<200); Estimated Glomerular Filt Rate > 60; Glucose Fasting 92 mg/dL (60-99); HDL Cholesterol 81 mg/dL (>40); LDL Cholesterol Calculated 151 mg/dL (<100); Potassium 4.3 mmol/L (3.3-5.1); Sodium 140 mmol/L (135-145); Total Protein 6.6 g/dL (6.5-8.0); Triglycerides 54 mg/dL (<150)
[2023-11-25 10:41] LABS: TSH reflex Free T4 0.69 uIU/mL (0.32-4.0)
== END 2023-11-25 06:26 | disposition home or self-care (01) ==
LOC: HO.HMGCLDS 06:25
PROVIDERS: PCP Internal Medicine; Visit Provider Internal Medicine
DX: Z00.00 Encounter for general adult medical examination without abnormal findings (principal); M81.0 Age-related osteoporosis without current pathological fracture; E78.5 Hyperlipidemia, unspecified
CPT/HCPCS: 36415; 80053; 80061; 82306; 84443; 85025

== ENCOUNTER 2023-12-03 08:11 | Outpatient (AMB) | payer BC, SELFPAY ==
[2023-12-03 08:17] VITALS: BP 106/76; PULSE 68; O2SAT 99; BMI 23.8
--- NOTE | 2023-12-03 08:17 | A.OFFPC_ITS ---
Vital Signs 12/03/23 08:17 Height 4 ft 11 in Weight 118 lb BMI 23.8 BP 106/76 Blood Pressure Location Lt brachial Position Sitting Pulse 68 Pulse Source Pulse Oximeter Pulse Oximetry (%) 99 Oxygen Delivery Method Room Air Intake Visit Reasons: Annual PE Intake Note: Pt is here today for PE. Allergies No Known Allergies Allergy (Verified 12/03/23 08:20) Medication List - Last Reconciled 12/03/23 by Adriana Galvez MD cholecalciferol (vitamin D3) 50 mcg PO .twice a day coenzyme [id number] E 100-100 mg-unit caps PO .three times a day magnesium glycinate 100 mg PO DAILY pravastatin 10 mg PO DAILY [id number]-[id number]-eakup-oreg-capryl PO vitamin B complex 1 tab PO DAILY vitamin K2 40 mcg PO DAILY Tobacco use date assessed: 12/03/23 Fall risk assessment: No Falls in past year Last assessed Fall Risk: 12/03/23 Dental Screening Dental Screen Date: 12/03/23 Did you have a dental visit in the last 12 months?: Yes Did you have a dental problem in the last 6 months where you did not have access to dental care?: No Was dental information given to patient?: Patient has dentist HPI Annual PE HPI Details Pt is for PE. PFSH Medical History DDD (degenerative disc disease), lumbosacral Annual physical exam Normal Pap smear Mammogram normal Hyperlipidemia Idiopathic hematuria Internal hemorrhoid Nephrolithiasis Osteoporosis Surgical History H/O colonoscopy delivery delivered Family History Father Lung cancer Mother No problems noted. Maternal Aunt Lung cancer Liver cancer Breast cancer Maternal Grandfather No problems noted. Maternal Grandmother No problems noted. Paternal Grandfather No problems noted. Paternal Grandmother No problems noted. Brother Mental health disorder Social History Household Members: Spouse Housing: House Are you a primary care transport nurse to a significant other at home: No Do you presently have visiting nurse or other home services: No Alcohol intake: current Alcohol intake frequency: a few times a week Alcohol type: hard liquor Patient Tobacco Use Status: Never used Tobacco e-Cigarette/Vaping Use: Never Used service: No Current occupational status: employed Cognitive needs: No Hearing needs: No Vision needs: Yes Questionnaire PHQ-9 Over the last 2 weeks, how often have you been bothered by any of the following problems? 1. Little interest or pleasure in doing things: not at all 2. Feeling down, depressed, or hopeless: not at all 3. Trouble falling or staying asleep, or sleeping too much: not at all 4. Feeling tired or having little energy: not at all 5. Poor appetite or overeating: not at all 6. Feeling bad about yourself - or that you are a failure or have let yourself or your family down: not at all 7. Trouble concentrating on things, such as reading the newspaper or watching television: not at all 8. Moving or speaking so slowly that other people could have noticed. Or the opposite - being so fidgety or restless that you have been moving around a lot more than usual: not at all 9. Thoughts that you would be better off or of hurting yourself in some way: not at all Total score: 0 Depression Screening Interpretation: Negative Depression Screening Done: Yes 64890 - PHQ-9 Billing: Yes Source: Developed by Drs. Brian Barbosa, Manasa Alicea, Husam Ponce and colleagues, with an educational parveen from [employer]. Thrive Questionnaire Date Thrive assessed: 12/03/23 I am a: Patient What is your living situation today?: I have a steady place to live Within the past 12 months, did the food you bought not last and you didn't have the money to get more?: Often true Within the past 12 months, did you worry whether your food would run out before you got money to buy more?: I choose not to answer this question Do you have trouble paying for medicines?: No Do you have trouble getting transportation to medical appointments?: No Do you have trouble paying your heating and electricity bill?: No Do you have trouble taking care of your child, family member or friend?: No Do you have trouble with day-to-day activities such as bathing, preparing meals, shopping, managing finances, etc.?: No Are you currently unemployed and looking for a job?: No Are you interested in more education?: No Please select the resources that you would like help with: None Currently or been in a relationship where the following occur: No concerns reported THRIVE Score: 1 AUDIT C Alcohol Use Questionnaire (AUDIT-C) 1. How often do you have a drink containing alcohol?: Monthly or less 2. How many drinks containing alcohol do you have on a typical day when you are drinking?: 1 or 2 3. How often do you have six or more drinks on one occasion?: Never Total Score: 1 MORALES-7 AMB Questionnaire MORALES-7 Date MORALES - 7 assessed: 12/03/23 Feeling nervous, anxious, or on edge: 0 = Not at all Not being able to stop or control worryin = Not at all Worrying too much about different things: 0 = Not at all Trouble relaxin = Not at all Being so restless that it is hard to sit still: 0 = Not at all Becoming easily annoyed or irritable: 0 = Not at all Feeling afraid as if something awful might happen: 0 = Not at all Total MORALES-7 score (0-4 normal; 5-9 mild; 10-14 moderate; 15-21 severe): 0 Source: Developed by Drs. Brian Barbosa, Manasa Alicea, Husam Ponce and colleagues, with an educational parveen from [employer]. MORALES-7 Assessment Billing MORALES-7 Assessment Tool: MORALES-7 Assessment 11535 Review of Systems Const All systems reviewed & are unremarkable except as noted in HPI and below Eyes Reports no additional complaints ENT Reports no additional complaints Card Reports no additional complaints Resp Reports no additional complaints GI Reports no additional complaints Reports no additional complaints Physical exam (Primary Care) Vital Signs: Last Vital Signs Pulse 68 12/03/23 08:17 BP 106/76 12/03/23 08:17 Pulse Ox 99 12/03/23 08:17 Oxygen Delivery Method Room Air 12/03/23 08:17 BMI result Body Mass Index 23.8 Tobacco/Smoking Status: Tobacco use Status Tobacco use date assessed 12/03/23 12/03/23 08:23 Patient Tobacco Use Status Never used Tobacco 12/03/23 08:17 e-Cigarette/Vaping Use Never Used 12/03/23 08:17 PHQ-9: PHQ-9 Score PHQ-9: Total score 0 12/03/23 08:23 Depression Screening Interpretation: Negative Thrive Assessment: Date of Thrive Assessment Date Thrive assessed 12/03/23 12/03/23 08:23 Currently or been in a relationship where the following occur: No concerns reported Const General: no acute distress HENMT Head: Yes normal to inspection Ears: hearing grossly normal bilaterally Face and sinus: Yes normal facial exam Throat: Yes posterior oropharynx normal Eyes General: appearance normal, both eyes and all related structures Neck Neck: Yes no lymphadenopathy and Yes supple Resp Effort & Inspection: normal respiratory effort Auscultation: clear to auscultation bilaterally Cardio Rhythm: regular rhythm Heart sounds: S1 normal heart sound present and S2 normal heart sound present GI Inspection: Yes normal to inspection Palpation (GI): Soft to palpation Percussion: Yes normal to percussion Auscultation: normal bowel sounds Assessment and Plan Assessment & Plan (1) Osteoporosis: Comment: Alendronate: started 07/2018 - January 2020- stopped per patient request DEXA 12/2019 T score -2.2 increased 5.7% after 1.5 years of Fosamax Fosamax 07/2018-01/2020 Code(s): M81.0 - Age-related osteoporosis without current pathological fracture Qualifiers: Osteoporosis type: age-related Presence of current pathological fracture: without current pathological fracture Qualified Code(s): M81.0 - Age- related osteoporosis without current pathological fracture Plan: Patient requested referral to endocrinology Dr. 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 Panel Fast 1 Year E55.9 - Vitamin D deficiency, unspecified, E78.5 - Hyperlipidemia, unspecified, Z00.00 - Encounter for general adult medical examination without abnormal findings Vitamin D 25-OH Total 1 Year E55.9 - Vitamin D deficiency, unspecified, E78.5 - Hyperlipidemia, unspecified, Z00.00 - Encounter for general adult medical examination without abnormal findings Vitamin B1 Today E78.5 - Hyperlipidemia, unspecified, Z00.00 - Encounter for general adult medical examination without abnormal findings Lipid Panel 1 Year E55.9 - Vitamin D deficiency, unspecified, E78.5 - Hyperlipidemia, unspecified, Z00.00 - Encounter for general adult medical examination without abnormal findings TSH reflex Free T4 1 Year E55.9 - Vitamin D deficiency, unspecified, E78.5 - Hyperlipidemia, unspecified, Z00.00 - Encounter for general adult medical examination without abnormal findings Referrals Endocrinology Referral M81.0 - Age-related osteoporosis without current pathological fracture Coding Level of Care Code Est Pt Prev Care 40-64y([id number]) Diagnoses Age-related osteoporosis without current pathological fracture M81.0 Osteoporosis type: age-related Presence of current pathological fracture: without current pathological fracture Hyperlipidemia E78.5 Annual physical exam Z00.00 Additional Codes MORALES-7 Assessment Billing - MORALES-7 Assessment Tool: MORALES-7 Assessment [id number] ([id number])
== END 2023-12-03 09:02 | disposition home or self-care (01) ==
PROVIDERS: PCP Internal Medicine; Visit Provider Internal Medicine
DX: Z00.00 Encounter for general adult medical examination without abnormal findings (principal); M81.0 Age-related osteoporosis without current pathological fracture; E78.5 Hyperlipidemia, unspecified
CPT/HCPCS: 99396

== ENCOUNTER 2023-12-03 09:03 | Outpatient (REF) | payer BC, SELFPAY ==
[2023-12-03 11:36] LABS: Folate 11.4 ng/mL (> or = 4.0); Vitamin B12 661 pg/mL (200-900)
[2023-12-10 06:28] LABS: Vitamin B1 19 nmol/L (8-30)
== END 2023-12-03 09:04 | disposition home or self-care (01) ==
LOC: HO.HMGCLDS 09:03
PROVIDERS: PCP Internal Medicine; Visit Provider Internal Medicine
DX: Z00.00 Encounter for general adult medical examination without abnormal findings (principal); E78.5 Hyperlipidemia, unspecified
CPT/HCPCS: 36415; 82607; 82746; 84425

== ENCOUNTER 2024-01-12 07:58 | Outpatient (REF) | payer BC, SELFPAY ==
--- NOTE | ~2024-01-12 | MM_ITS ---
EXAMINATION: BONE DENSITOMETRY CLINICAL INDICATION: Age-related osteoporosis without current pathological fracture. COMPARISON: Previous BD dated 01/07/2022 and baseline BD dated 11/04/2007. TECHNIQUE: Using a [employer] DXA System (software version: 13.1) manufactured by [employer], dual-energy x-ray absorptiometry was performed of the lumbar spine and left hip. The images are of good technical quality. Summary results are attached. FINDINGS: LEFT FEMUR, NECK: Current: BMD 0.835 g/cm2, Z-score 0.2, T-score -1.5, osteopenia. Prior: BMD 0.829 g/cm2. Baseline: BMD 0.871 g/cm2. LEFT FEMUR, TOTAL: Current: BMD 0.936 g/cm2, Z-score 0.9, T-score -0.6, normal, 1.8% decrease from previous, 3.2% decrease from baseline (<5% change is not significant). Prior: BMD 0.953 g/cm2. Baseline: BMD 0.967 g/cm2. AP SPINE L1-L4: Current: BMD 0.902 g/cm2, Z-score -0.4, T-score -2.3, osteopenia, 4.0% increase from previous, 7.8% decrease from baseline (<5% change is not significant). Prior: BMD 0.867 g/cm2. Baseline: BMD 0.978 g/cm2. IDENTIFIED RISK FACTORS: Early menopause, osteoporosis, secondary osteoporosis. HISTORY OF FRACTURE: None listed. MEDICATIONS: Calcium, vitamin D. MM/XR DEXA axial skeleton IMPRESSION: 1. DIAGNOSIS: Osteopenia based on the lowest T-score value of -2.3 in the lumbar spine applying World Health Organization criteria. 2. 10-YEAR FRACTURE RISK PREDICTION, FRAX: Major osteoporotic fracture (clinical spine, forearm, hip or shoulder) 8.5%. Hip fracture 0.9%. 3. Treatment Recommendations: NOF guidelines recommend consideration for treatment in postmenopausal women and men age 50 and older presenting with the following: -A hip or vertebral (clinical or morphometric) fracture. -T-score less than or equal to -2.5 at the femoral neck or spine after appropriate evaluation to exclude secondary causes. -Low bone mass at the hip or spine and a 10-year fracture probability by FRAX of greater than or equal to 3% for hip fracture or greater than or equal to 20% for major osteoporotic fracture based on the [place] adapted WHO algorithm. 4. Other Recommendations: All treatment decisions require clinical judgment and consideration of individual patient factors, including patient preferences, comorbidities, previous drug use, risk factors not captured in the FRAX model (e.g. frailty, falls, vitamin D deficiency, increased bone turnover, interval significant decline in bone density) and possible under or overestimation of fracture risk by FRAX. Additional medical evaluation for secondary cause of low bone mineral density may be appropriate. FUTURE SCAN RECOMMENDATION: People with diagnosed cases of osteoporosis or at high risk for fracture should have regular bone mineral density tests. For patients eligible for Medicare, routine testing is allowed once every 2 years. The testing frequency can be increased to one year for patients who have rapidly progressing disease, those who are receiving or discontinuing medical therapy to restore bone mass, or have additional risk factors. Electronically signed by: Brian Chatterjee MD 01/24/2024 08:44 AM EDT
== END 2024-01-12 07:59 | disposition home or self-care (01) ==
LOC: HO.MAMMO 07:58
PROVIDERS: PCP Internal Medicine; Visit Provider Nurse Practitioner Family
DX: M81.0 Age-related osteoporosis without current pathological fracture (principal)
CPT/HCPCS: 77080

== ENCOUNTER 2024-06-07 08:21 | Outpatient (REF) | payer MEDICARE, SELFPAY ==
--- OUTSIDE RECORDS SUMMARY | 2024-06-07 08:50 | XMS_ITS ---
Author Organization [facility] Address [address] [place] [address] Care Team Providers Care Dobie Worker Name Role Phone Adriana Galvez MD Primary Care Provider Brian Rubio Unavailable [phone] ALLERGIES No Known Allergies REASON FOR VISIT Patient presents today for a recall colonoscopy MEDICATIONS Medication SIG (Take, Route, Fr equency, Duration) Notes Start Date End Date Status Vitamin B Complex Orally Ac tive Vitamin K2 Active Vitamin D3 Active SOCIAL HISTORY Sex Assigned At : Social History Observation Description Sex Assigned At Unknown Alcohol Screen Question Answer Notes Did you have a drink contain ing alcohol in the past year? Yes How often did you have a dri nk containing alcohol in the past year? 2 to 4 times a month (2 points) How many drinks did you have on a typical day when you were drinking in the past year? 1 or 2 drinks (0 point) How often did you have 6 or more drinks on one occasion in the past year? Never (0 point) Points 2 Interpretation Negative PROBLEMS Problem Type ICD Code Onset Dates Problem Status W/U Status Risk SNOMED Code Notes Problem Colon cancer screening (Z12.11) Active confirmed Colon cancer screening (889808685) Problem Encounter for other preprocedural examination (Z01.818) Active confirmed Pre-procedure evaluation check (580482158) VITAL SIGNS Blood pressure systolic 00 mm Hg 03/28/20 24 Blood pressure diastolic 00 mm Hg 024 Height 60 in 03/28/2024 Weight 122 lbs 03/28/2024 BMI 23.82 kg/m2 03/28/2024 Encounters Encounter Location Date Provider Diagnosis [facility] [address] [place] [address] 03/28/2024 Brian Humphrey Colon cancer screeni ng Z12.11 and Encounter for other preprocedural examination Z01.818 ASSESSMENTS Encounter Date Diagnosis Assessment Notes Treatment Notes Treatment Clinical Notes 03/28/2024 Colon cancer screening (ICD-10 - Z12.11) 03/28/2024 Encounter for other preprocedural examination (ICD-10 - Z01.818) PLAN OF TREATMENT Future Test Test Name Order Date COLONOSCOPY 03/28/2024 Next Appt Details Follow Up: prn, Reason: Provider Name:Brian Humphrey , 07/24/2024 08:30:00 AM, [address] [place] [address] , [place], [place], [phone], Progress Notes * Examination Category Sub-Category Detail Notes General Examination GENERAL APPEARANCE: pleasant , well nourished, well developed, in no acute distress HEAD: EYES: sclera non-icteric EARS: NOSE: THROAT: NECK/THYROID: no cervical lymphade nopathy, neck supple HEART: S1, S2 normal CHEST: LUNGS: clear to auscultatio n bilaterally ABDOMEN: normal bowel sounds, no guarding or rigidity, no guarding or rigidity, no masses palpable, soft, nontender, nondistended NEUROLOGIC: alert and oriented SKIN: nonjaundiced, no spi katt angiomata EXTREMITIES: no edema PERIPHERAL PULSES: BACK: BREASTS: MUSCULOSKELETAL: MALE GENITOURINARY: LYMPH NODES: RECTAL EXAM: FEMALE GENITOURINARY: ORAL CAVITY: mucosa moist
--- OUTSIDE RECORDS SUMMARY | 2024-06-07 08:50 | XMS_ITS | Patient Health Record ---
Author Organization [facility] Address [address] [place] [address] Care Team Providers Care Safety Council Director Name Role Phone Adriana Galvez MD Primary Care Provider Brian Rubio Unavailable [phone] ALLERGIES No Known Allergies REASON FOR REFERRAL No Information MEDICATIONS Medication SIG (Take, Route, Fr equency, [...] screening (Z12.11) Active confirmed Colon cancer screening (340162123) Problem Encounter for other preprocedural examination (Z01.818) Active confirmed Pre-procedure evaluation check (031002186) VITAL SIGNS Blood pressure diastolic 00 mm Hg 03/28/2024 Height 60 in 03/28/2024 Blood pressure systolic 00 mm Hg 03/28/2024 Weight 122 lbs 03/28/2024 BMI 23.82 kg/m2 03/28/2024 Encounters Encounter Location Date Provider Diagnosis [facility] [address] [place] [address] 03/28/2024 Brian Humphrey Colon cancer screeni ng Z12.11 and Encounter for other preprocedural examination Z01.818 ASSESSMENTS Encounter Date Diagnosis Assessment Notes Treatment Notes Treatment Clinical Notes 03/28/2024 Colon cancer screening (ICD-10 - Z12.11) 03/28/2024 Encounter for other preprocedural examination (ICD-10 - Z01.818) PLAN OF TREATMENT Future Test Test Name Order Date COLONOSCOPY 09/05/2013 COLONOSCOPY 03/28/2024 Next Appt Details Provider Name:Brian Humphrey , 07/24/2024 08:30:00 AM, [address] [facility] , [place], [place], [phone], Insurance Providers Payer Name Payer Address Payer Phone Subscriber Number Group Number Insured Name Patient Relationship to Insured Coverage Start Date Coverage End Date MEDICARE OF [place] [address] [facility] [place] [address] [id number] DANIELA REYNOLDS Self - patient is the insured MEDEX ATTN CLAIMS [address] [place] [address] [id number] DANIELA REYNOLDS Self - patient is the insured MEDICAL (GENERAL) HISTORY Medical History History ICD Code Flex sig in 1999 and colonos copy 05-18-2003--negative except for internal and external hemorrhoids Denies HI,DM,CVA,Lung disease,renal dise ase Kidney stones Negative screening colonoscopy in 2013 Surgical History Surgery Date(Month/Year) Two C-sections
== END 2024-06-07 08:22 | disposition home or self-care (01) ==
LOC: HO.MAMMO 08:21
PROVIDERS: PCP Internal Medicine; Visit Provider Internal Medicine
DX: Z12.31 Encounter for screening mammogram for malignant neoplasm of breast (principal)
CPT/HCPCS: 77063; 77067

== ENCOUNTER → 2024-06-07 08:30 | Outpatient (BNV) | payer MEDICARE, SELFPAY | PROVIDERS: PCP Internal Medicine; Visit Provider Internal Medicine | DX: Z12.31 Encounter for screening mammogram for malignant neoplasm of breast (principal) | CPT/HCPCS: 77063; 77067 ==

== ENCOUNTER 2024-06-14 10:56 | Outpatient (AMB) | payer MEDICARE, SELFPAY ==
[2024-06-14 11:06] VITALS: BP 110/68; PULSE 75; RESP 18; TEMP 37.2; O2SAT 97; BMI 24.8
--- NOTE | 2024-06-14 11:06 | A.OFFPC_ITS ---
Vital Signs 06/14/24 11:06 Height 4 ft 11 in Weight 123 lb BMI 24.8 BP 110/68 Blood Pressure Location Rt brachial Position Sitting Respiration 18 Pulse 75 Pulse Source Pulse Oximeter Temp 99.0 F Temp Source Oral Pulse Oximetry (%) 97 Oxygen Delivery Method Room Air Intake Visit Reasons: Right middle finger pain Intake Note: Pt is here today for a sick visit. Pt c/o R middle finger pain for a month. Allergies No Known Allergies Allergy (Verified 06/14/24 11:07) Medication List - Last Reconciled 06/14/24 by Adriana Galvez MD cholecalciferol (vitamin D3) 50 mcg PO .twice a day coenzyme [id number] E 100-100 mg-unit caps PO .three times a day magnesium glycinate 100 mg PO DAILY pravastatin 10 mg PO DAILY khlrsay-wgym-cctwf-oreg-capryl PO vitamin B complex 1 tab PO DAILY vitamin K2 40 mcg PO DAILY Tobacco use date assessed: 06/14/24 Fall risk assessment: No Falls in past year Last assessed Fall Risk: 06/14/24 Dental Screening Dental Screen Date: 06/14/24 Did you have a dental visit in the last 12 months?: Yes Did you have a dental problem in the last 6 months where you did not have access to dental care?: No Was dental information given to patient?: Patient has dentist HPI Right middle finger pain HPI Details Patient presents complaining of swelling and bruise on the right middle finger over DIP joint. Patient denies any injury. She reports improving pain and able to use her finger without difficulties. Patient denies easy bruising prolong joint stiffness in the morning. Hyperlipidemia is controlled on pravastatin [facility] Medical History DDD (degenerative disc disease), lumbosacral Annual physical exam Normal Pap smear Mammogram normal Hyperlipidemia Idiopathic hematuria Internal hemorrhoid Nephrolithiasis Osteoporosis Surgical History H/O colonoscopy delivery delivered Family History Father Lung cancer Mother No problems noted. Maternal Aunt Lung cancer Liver cancer Breast cancer Maternal Grandfather No problems noted. Maternal Grandmother No problems noted. Paternal Grandfather No problems noted. Paternal Grandmother No problems noted. Brother Mental health disorder Social History Household Members: Spouse Housing: House Are you a primary body care manager to a significant other at home: No Do you presently have visiting nurse or other home services: No 75 years or older and lives alone: No Alcohol intake: current Alcohol intake frequency: a few times a week Alcohol type: hard liquor Patient Tobacco Use Status: Never used Tobacco e-Cigarette/Vaping Use: Never Used service: No Current occupational status: employed Cognitive needs: No Hearing needs: No Vision needs: Yes Questionnaire Thrive Questionnaire Date Thrive assessed: 06/14/24 AUDIT C Alcohol Use Questionnaire (AUDIT-C) 1. How often do you have a drink containing alcohol?: Monthly or less 2. How many drinks containing alcohol do you have on a typical day when you are drinking?: 1 or 2 3. How often do you have six or more drinks on one occasion?: Never Total Score: 1 MORALES-7 AMB Questionnaire MORALES-7 Date MORALES - 7 assessed: 12/03/23 Source: Developed by Drs. Brian Barbosa, Manasa Alicea, Husam Ponce and colleagues, with an educational parveen from [employer]. Review of Systems Const All systems reviewed & are unremarkable except as noted in HPI and below ENT Reports no additional complaints Card Reports no additional complaints Resp Reports no additional complaints GI Reports no additional complaints Physical exam (Primary Care) Vital Signs: Last Vital Signs Temp 99.0 F 06/14/24 11:06 Pulse 75 06/14/24 11:06 Resp 18 06/14/24 11:06 BP 110/68 06/14/24 11:06 Pulse Ox 97 06/14/24 11:06 Oxygen Delivery Method Room Air 06/14/24 11:06 BMI result Body Mass Index 24.8 Tobacco/Smoking Status: Tobacco use Status Tobacco use date assessed 06/14/24 06/14/24 11:08 Patient Tobacco Use Status Never used Tobacco 06/14/24 11:08 e-Cigarette/Vaping Use Never Used 06/14/24 11:08 Thrive Assessment: Date of Thrive Assessment Date Thrive assessed 06/14/24 06/14/24 11:08 Const General: no acute distress HENMT Head: Yes normal to inspection Resp Effort & Inspection: normal respiratory effort Cardio Rhythm: regular rhythm Heart sounds: S1 normal heart sound present and S2 normal heart sound present Extrem Other: Right middle finger DIP joint with slight deformity and full range of motion, there is no erythema warmth Coding Level of Care Code Est Pt Level 3 (67066) Diagnoses Superficial bruising of finger S60.00XA Hyperlipidemia E78.5 Assessment & Plan Assessment & Plan (1) Superficial bruising of finger: Code(s): S60.00XA - Contusion of unspecified finger without damage to nail, initial encounter Category: Medical Plan: Supportive care discussed with the (2) Hyperlipidemia: Code(s): E78.5 - Hyperlipidemia, unspecified Category: Medical Plan: Continue pravastatin
--- OUTSIDE RECORDS SUMMARY | 2024-06-14 13:15 | XMS_ITS ---
Author Organization [facility] Address [address] [place] [address] Care Team Providers Care Flame Hardener Name Role Phone Adriana Galvez MD Primary Care Provider Brian Rubio Unavailable [phone] Allergies No Known Allergies REASON FOR VISIT Patient presents today for a recall colonoscopy Medications Medication SIG (Take, Route, Fr equency, Duration) Notes Start Date End Date Status Vitamin B Complex Orally Ac tive Vitamin K2 Active Vitamin D3 Active Social History Alcohol Screen Question Answer Notes Did you [...] Never (0 point) Points 2 Interpretation Negative Section Notes: Nonsmoker; no sig alcohol Problems Problem Type SNOMED Code ICD Code Onset Dates Problem Status W/U Status Risk Notes Problem Colon cancer screening (250287748) Colon cancer screening (Z12.11) Active confirmed Problem Pre-procedure evaluation check (537690557) Encounter for other preprocedural examination (Z01.818) Active confirmed Vital Signs Blood pressure systolic 00 mm Hg 03/28/20 24 Blood pressure diastolic 00 mm Hg 024 Height 60 in 03/28/2024 Weight 122 lbs 03/28/2024 BMI 23.82 kg/m2 03/28/2024 Encounters Encounter Location Date Provider Diagnosis [facility] [address] [facility] [address] [place] [address] 03/28/2024 Brian Humphrey Colon cancer screeni ng Z12.11 and Encounter for other preprocedural examination Z01.818 Assessments Encounter Date Diagnosis (ICD Code) Assessment Notes Treatment Notes Treatment Clinical Notes Section Notes 03/28/2024 Colon cancer screening (ICD-10 - Z12.11) Overall, Monica appears quite well. Given her age, excellent clinical appearance, and last colonoscopy being over 10 years ago, I did recommend a followup colonoscopy for further screening purposes. We did review the rationale for that regard colon cancer prevention. Full consent was obtained for this, including risks of bleeding and perforation. The procedure will be done with monitored anesthesia care. Monica was comfortable with this plan. Thank you again for allowing me to participate in Monica's care. I shall continue to keep you advised of her progress. 03/28/2024 Encounter for other preprocedural examination (ICD-10 - Z01.818) Overall, Monica appears quite well. Given her age, excellent clinical appearance, and last colonoscopy being over 10 years ago, I did recommend a followup colonoscopy for further screening purposes. We did review the rationale for that regard colon cancer prevention. Full consent was obtained for this, including risks of bleeding and perforation. The procedure will be done with monitored anesthesia care. Monica was comfortable with this plan. Thank you again for allowing me to participate in Monica's care. I shall continue to keep you advised of her progress. Plan Of Treatment Future Test Test Name Order Date COLONOSCOPY 03/28/2024 Next Appt Details Follow Up: prn, Reason: Provider Name:Brian Humphrey , 07/24/2024 08:30:00 AM, [address] [place] [address] , [place], [place], [phone], Progress Notes * DANIELA REYNOLDSDOB:[birth year] (63 yo F)Acc No.[id number]:03/28/2024 Progress Notes Patient:?ALAN DANIELA Provider:?Brian Humphrey MD :1960???Age:63 Y???Sex:Female D ate:03/28/2024 Address:[place], [place] Pcp:Adriana Galvez MD Subjective: * Chief Complaints: * ???Patient presents today fo r a recall colonoscopy * HPI: ???incontinence:? I saw Monica in the office today for evaluation of colorectal cancer screening. ?I last saw Monica in December of 2013, at which time she underwent a screening colonoscopy that was negative. She currently feels well. She enjoys a good appetite, without any significant heartburn or dysphagia. Her bowel movements have been regular and without any signs of bleeding. She denies abdominal pain, jaundice, nor any unintentional weight loss. She denies any known family history of colorectal cancer. * ROS:?General/Constitutional:?Change in appetite?denies.?Chills?denies.?Fatigue?denies.?Ophthalmologic:?Comments?all negative.?ENT:?Comments?all negative.?Respiratory:?hemoptysis?denies.?Cough?denies.?Cardiovascular:?Chest pain?denies.?Orthopnea?denies.?Gastrointestinal:?Comments?See HPI for details.?Genitourinary:?Hematuria?denies.?Dysuria?denies.?Musculoskeletal:?Painful joints?denies.?Weakness?denies.?Skin:?Itching?denies.?Rash?denies.?Neurologic:?Headache?denies.?Seizures?denies.?Psychiatric:?Comments?all negative.? * Medical History:? * Surgical History:?Two C-sect ions * Hospitalization/Major Diagno stic Procedure:?No Hospitalization History. * Family History:?Father: dece ased.?Mother: alive.? There is no family history of colorectal cancer, polyps, nor inflammatory bowel disease. * Social History:?Tobacco Use:?Tobacco Use/Smoking?Are you a: nonsmoker.?Drugs/Alcohol:?Alcohol Screen?Did you have a drink containing alcohol in the past year??Yes,?How often did you have a drink containing alcohol in the past year??2 to 4 times a month (2 points),?How many drinks did you have on a typical day when you were drinking in the past year??1 or 2 drinks (0 point),?How often did you have 6 or more drinks on one occasion in the past year??Never (0 point),?Points?2,?Interpretation?Negative.?Miscellaneous:?Marital status: . 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 ???Nonsmoker; no sig alcohol. * Medications:?TakingVitamin K 2 Vitamin D3 Vitamin B Complex Tablet Orally Taking Vitamin K2 Taking Vitamin D3 Taking Vitamin B Complex Tablet Orally DiscontinuedMultivitamin Liquid Orally Vitamin D 400 UNIT Capsule Orally Fish Oil 1000 MG Capsule 1 capsule Orally Once a dayProbiotic Capsule Orally MoviPrep 100 GM Solution Reconstituted as directed Orally as directedMedication List reviewed and reconciled with the patientDiscontinued Multivitamin Liquid Orally Discontinued Vitamin D 400 UNIT Capsule Orally Discontinued Fish Oil 1000 MG Capsule 1 capsule Orally Once a dayDiscontinued Probiotic Capsule Orally Discontinued MoviPrep 100 GM Solution Reconstituted as directed Orally as directedMedication List reviewed and reconciled with the patient * Allergies:?N.K.D.A.yes[Aller gies Verified] Objective: * Vitals:?Wt: 122 lbs, Ht: 60 in, BMI:23.82 Index, BP: 00/00 mm Hg. * Examination: ???General Examination: ?GENERAL APPEARANCE:?pleasant, well nourished, well developed, in no acute distress.?EYES:?sclera non-icteric.?ORAL CAVITY:?mucosa moist.?NECK/THYROID:?no cervical lymphadenopathy, neck supple.?SKIN:?nonjaundiced, no spider angiomata.?HEART:?S1, S2 normal.?LUNGS:?clear to auscultation bilaterally.?ABDOMEN:?normal bowel sounds, no guarding or rigidity, no guarding or rigidity, no masses palpable, soft, nontender, nondistended.?EXTREMITIES:?no edema.?NEUROLOGIC:?alert and oriented.? Assessment: * Assessment: 1.?Colon cancer screening - Z12.11 (Primary)?2.?Encounter for other preprocedural examination - Z01.818? Overall, Monica appears quite well. Given her age, excellent clinical appearance, and last colonoscopy being over 10 years ago, I did recommend a followup colonoscopy for further screening purposes. We did review the rationale for that regard colon cancer prevention. Full consent was obtained for this, including risks of bleeding and perforation. The procedure will be done with monitored anesthesia care. Monica was comfortable with this plan. Thank you again for allowing me to participate in Monica's care. I shall continue to keep you advised of her progress. Plan: * Treatment: * Procedure Codes:? * Preventive Medicine:? ??Urinary Incontinence:?Urinary Incontinence?Assessment:?Absent,?Plan of care documented:?No, reason not specified.? ??Screenings:?Fall Risk Screening?Fall Risk Assessment:?No falls in the past year,?Screening:?No falls in the past year,?Assessment:?Not performed, no reason specified,?Plan of Care:?Not documented, no reason specified.? * Follow Up:?prn * * Sign off status: Completed true * Provider:?Brian Humphrey MD Date:? 024 Generated for Amparo bermudez/Marcus/Shane on:?06/14/2024 01:15 PM EST History and Physical Notes * HPI (History of Present Illness) Category Sub-Category Detail Notes Category Not es incontinence I saw Monica in the office today for evaluation of colorectal cancer screening. I last saw Monica in December of 2013, at which time she underwent a screening colonoscopy that was negative. She currently feels well. She enjoys a good appetite, without any significant heartburn or dysphagia. Her bowel movements have been regular and without any signs of bleeding. She denies abdominal pain, jaundice, nor any unintentional weight loss. She denies any known family history of colorectal cancer. Examination Category Sub-Category Detail Notes Category Not es General Examination GENERAL APPEARANCE: pleasant , well [...]
--- OUTSIDE RECORDS SUMMARY | 2024-06-14 13:15 | XMS_ITS | Patient Health Record ---
Author Organization [facility] Address [address] [place] [address] Care Team Providers Care Gate Operator Name Role Phone Adriana Galvez MD Primary Care Provider Brian Rubio Unavailable [phone] Allergies No Known Allergies Reason For Referral No Information Medications Medication SIG (Take, Route, Fr equency, [...] Negative Section Notes: Nonsmoker; no sig alcohol Nonsmoker; no sig alcohol Problems Problem Type SNOMED Code ICD Code Onset Dates Problem Status W/U Status Risk Notes Problem Colon cancer screening (125854862) Colon cancer screening (Z12.11) Active confirmed Problem Pre-procedure evaluation check (506250899) Encounter for other preprocedural examination (Z01.818) Active confirmed Vital Signs Blood pressure diastolic 00 mm Hg 03/28/2024 Height 60 in 03/28/2024 Blood pressure systolic 00 mm Hg 03/28/2024 Weight 122 lbs 03/28/2024 BMI 23.82 kg/m2 03/28/2024 Encounters Encounter Location Date Provider Diagnosis [facility] [address] [place] [address] 03/28/2024 Brian Humphrey Colon cancer screeni ng [...] Name:Brian Humphrey , 07/24/2024 08:30:00 AM, [address] [facility] , [place], [place], [phone], Insurance Providers Payer Name Payer Address Payer Phone Subscriber Number Group Number Insured Name Patient Relationship to Insured Coverage Start Date Coverage End Date MEDICARE OF [place] [address] [place] [id number] DANIELA REYNOLDS Self - patient is the insured MED[employer] ATTN CLAIMS [address] [place] [address] [id number] DANIELA REYNOLDS Self - patient is the insured Medical (General) History Medical History History ICD Code Flex sig in 1999 and colonos copy 05-18-2003--negative except for internal and external hemorrhoids Denies MD,DM,CVA,Lung disease,renal dise ase Kidney stones Negative screening colonoscopy in 2013 Surgical History Surgery Date(Month/Year) Two C-sections
== END 2024-06-14 12:02 | disposition home or self-care (01) ==
PROVIDERS: PCP Internal Medicine; Visit Provider Internal Medicine
DX: S60.00XA Contusion of unspecified finger without damage to nail, initial encounter (principal); E78.5 Hyperlipidemia, unspecified

== ENCOUNTER → 2024-06-14 10:56 | Outpatient (BNVA) | payer MEDICARE, SELFPAY | PROVIDERS: PCP Internal Medicine; Visit Provider Internal Medicine | DX: S60.00XD Contusion of unspecified finger without damage to nail, subsequent encounter (principal); E78.5 Hyperlipidemia, unspecified | CPT/HCPCS: 99212 ==

== ENCOUNTER 2024-07-24 07:14 | Day surgery (SDC) | payer MEDICARE, SELFPAY ==
[2024-07-20 13:50] VITALS: BMI 23.8
[2024-07-24 07:28] VITALS: BMI 23.8
[2024-07-24] MEDS: Lactated Ringers 1,000 ML 50 ML IVCONT (07:32)
[2024-07-24 07:36] VITALS: BP 107/59; PULSE 70; RESP 18; TEMP 36.8; O2SAT 99
--- NOTE | 2024-07-24 08:14 | P.CONAN_ITS ---
HPI - Anesthesia Eval Consult details Narrative: colon PMFSH Active Problems Active Problems: All Active Problems Superficial bruising of finger (Acute) Vitamin D deficiency (Acute) Post-viral cough syndrome (Acute) Chronic lower back pain (Acute) Back pain (Acute) Annual physical exam (Acute) Normal Pap smear (Acute) Mammogram normal (Acute) DDD (degenerative disc disease), lumbosacral (Acute) Nephrolithiasis (Acute) Osteoporosis (Acute) Hyperlipidemia (Acute) Past Medical History Medical History History of flexible sigmoidoscopy DDD (degenerative disc disease), lumbosacral Hyperlipidemia Idiopathic hematuria Internal hemorrhoid Nephrolithiasis Osteoporosis Family History Family History Father Lung cancer Mother No problems noted. Maternal Aunt Lung cancer Liver cancer Breast cancer Maternal Grandfather No problems noted. Maternal Grandmother No problems noted. Paternal Grandfather No problems noted. Paternal Grandmother No problems noted. Brother Mental health disorder Family history of problems with anesthesia: No Surgical History Surgical History History of H/O colonoscopy History of Problems with Anesthesia: No Social History Social History Household Members: Spouse Housing: House Are you a primary healthcare science specialist to a significant other at home: No Do you presently have visiting nurse or other home services: No Alcohol intake: current Alcohol intake frequency: a few times a week Alcohol type: hard liquor Patient Tobacco Use Status: Never used Tobacco e-Cigarette/Vaping Use: Never Used Have you been hit, kicked, punched, or otherwise hurt by someone within the past year? If so, by whom?: No Are you DNR?: No Advance Directives: No Advance Directives Information Provided: Yes Poor oral hygiene: No service: No Current occupational status: employed Cognitive needs: No Hearing needs: No Vision needs: Yes Meds Allergies Allergy/AdvReac Type Severity Reaction Status Date / Time No Known Allergies Allergy Verified 07/24/24 07:29 Active Medications: Current Medications Lactated Ringer's (Lr) 1,000 mls @ 50 mls/hr IVCONT .Q20H DEBBIE Last Admin: 07/24/24 07:32 Dose: 50 mls/hr Sodium Biphosphate/Sodium Phosphate (Sodium Phosphate,[place]-Dibasic 133 Ml Enema) 133 ml RI ONCE PRN PRN Reason: Poor Colonoscopy Prep Results Home Medications ?Medication ?Instructions ?Recorded ?Confirmed ?Last Taken ?Type vitamin B complex 1 tab PO DAILY 01/13/20 07/20/24 Unknown History vitamin K2 40 mcg tablet 40 mcg PO DAILY 01/13/20 07/20/24 Unknown History cholecalciferol (vitamin D3) 50 50 mcg PO .twice a day twice a day 02/19/21 07/20/24 Unknown History mcg (2,000 unit) capsule pravastatin 10 mg tablet 10 mg PO BEDTIME 07/20/24 07/20/24 Unknown History Exam Height,Weight and Vital Signs: Height 5 ft Weight 55.338 kg Last Vital Signs Temp 98.2 F 07/24/24 07:36 Pulse 70 07/24/24 07:36 Resp 18 07/24/24 07:36 BP 107/59 L 07/24/24 07:36 Pulse Ox 99 07/24/24 07:36 O2 Del Method Room Air 07/24/24 07:36 Airway Mallampati Class: II TM Dist: >3cm Neck ROM: Full Heart: rrr Lungs: cta Assessment and Plan Assessment Anesthesia Assessment: Anesthesia Plan Discussed Final Anesthetic Review Family History of Problems with Anesthesia: No History of Problems with Anesthesia: No NPO: Yes ASA Class: II Final Preanesthetic Review: No Changes in Pt Med Stat, Meds/Allgs Chart Reviewed, Consent Obtained/Reviewed and Anes Risks/Benef Reviewed Patient Risk: Low Procedure Risk: Low Anesthetic Plan Anesthetic Plan: MAC: Disposition: Standard PACU
[2024-07-24 09:07] VITALS: BP 94/51; PULSE 62; RESP 16; TEMP 36.2; O2SAT 98
--- NOTE | 2024-07-24 09:09 | PM.OP ---
Brief Operative Note Date of Service: 07/24/24 Pre-op diagnosis: Screening Post-op diagnosis: other (Diverticulosis) Procedure: Colonoscopy to the cecum and TI Surgeon: Brian Humphrey MD Anesthesia: MAC Was an General Accounting Manager used for this Procedure?: No Estimated blood loss (mL): 0 Pathology: none sent Condition: stable Disposition: PACU
[2024-07-24 09:22] VITALS: BP 105/63; PULSE 65; RESP 16; TEMP 36.1; O2SAT 100
--- NOTE | 2024-07-24 09:50 | OP_ITS ---
DATE OF SERVICE: 07/24/2024 SURGEON: Brian Humphrey MD INDICATIONS: The patient presents for evaluation of colorectal cancer screening. Full consent has been obtained from her for this, including risks of bleeding and perforation. PREOPERATIVE DIAGNOSIS: Colorectal cancer screening. POSTOPERATIVE DIAGNOSIS: PROCEDURE PERFORMED: Colonoscopy to the cecum and terminal ileum. ESTIMATED BLOOD LOSS: COMPLICATIONS: ANESTHESIA: Medication use, monitored anesthesia care. ASSISTANTS: SPECIMENS: POSTOPERATIVE DIAGNOSES: Colorectal cancer screening, mild diverticulosis, internal and external hemorrhoids. DESCRIPTION OF PROCEDURE: The patient was placed in the left lateral decubitus position. The digital rectal exam revealed external hemorrhoids. The Olympus video pediatric colonoscope was entered into the rectum and advanced easily to the cecum. Once in the cecum, I did identify normal-appearing cecal pouch with appendiceal orifice and a normal-appearing ileocecal valve. The terminal ileum was cannulated and appeared normal. The scope was withdrawn back in the colon. The entire cecum and ileocecal valve appeared normal. The scope was slowly withdrawn assessing all mucosal surfaces carefully. Preparation was excellent. I did not visualize any sign of polyps, colitis, nor angiodysplasia. There was a mild amount of sigmoid diverticulosis. In the rectum, scope was retroflexed visualizing internal hemorrhoids, but no other pathology. The rectal mucosa appeared normal. The scope was straightened and withdrawn from the patient. She tolerated the procedure well and was returned to the recovery area in stable condition. IMPRESSION: 1. Internal and external hemorrhoids. 2. Diverticulosis. PLAN: Given today's negative exam and negative family history, I would recommend a followup colonoscopy in 10 years. She will otherwise see me on a p.r.n. basis. MD TALYOR Willingham/SIDNEY / [phone]
== END 2024-07-24 09:52 | disposition home or self-care (01) ==
PROVIDERS: PCP Internal Medicine; Visit Provider Internal Medicine
PROC: 0DJD8ZZ Inspection of Lower Intestinal Tract, Via Natural or Artificial Opening Endoscopic (ICD-10-PCS; CPT 45378; principal; 2024-07-24 08:30)
DX: Z12.11 Encounter for screening for malignant neoplasm of colon (principal); K57.30 Diverticulosis of large intestine without perforation or abscess without bleeding; K64.8 Other hemorrhoids; K64.4 Residual hemorrhoidal skin tags
CPT/HCPCS: G0121; J2704

== ENCOUNTER 2024-12-08 06:19 | Outpatient (REF) | payer MEDICARE, SELFPAY ==
--- OUTSIDE RECORDS SUMMARY | 2024-07-24 04:30 | XMS_ITS ---
Author Organization [facility] Address [address] [place] [address] Care Team Providers Care Tariff Supervisor Name Role Phone Adriana Galvez MD Primary Care Provider Unavaila Brian Newton [phone] REASON FOR VISIT screening Encounters Encounter Location Date Provider Diagnosis [facility] [address] [place] [phone] 07/24/2024 Brian Humphrey Colon cancer scree bruno Z12.11 ; Other hemorrhoids K64.8 and Diverticulosis of large intestine without perforation or abscess without bleeding K57.30 Assessments Encounter Date Diagnosis (ICD Code) Assessment Notes Treatment Notes Treatment Clinical Notes Section Notes 07/24/2024 Colon cancer screening (ICD-10 - Z12.11) 07/24/2024 Other hemorrhoids (ICD-10 - K64.8) 07/24/2024 Diverticulosis of large intestine without perforation or abscess without bleeding (ICD-10 - K57.30) Plan Of Treatment No Information Progress Notes * ALAN DANIELADOB:[birth year] (63 yo F)Acc No.[id number]:07/24/2024 COLON WITH MAC Patient: DANIELA KOCH Provider: Keaton Humphrey MD :1960 A ge:63 Y S ex:Female Date:07/24/2024 [address] [facility] [id number] Pcp:Adriana Galvez MD Subjective: * Chief Complaints: * 1 . Screening. * Medical History: Objective: * Vitals: Assessment: * Assessment: 1. C olon cancer screening - Z12.11 (Primary) 2 . O ther hemorrhoids - K64.8 3 . D iverticulosis of large intestine without perforation or abscess without bleeding - K57.30 Plan: * Treatment: * Procedure Codes: G 0121 COLOREC CNCR SCR;COLNSCPY NO HI RSK, 0529F INTRVL 3+YRS PTS CLNSCP DOCD, 0528F RCMND FLW-UP 10 YRS DOCD * * The named appointment provid er may or may not be the originator of this progress note, and it is not deemed complete until electronically signed by the appointment provider. Sign off status: Pending * Provider: Keaton Humphrey MD Date: 0 07/24/2024 Generated for Amparo bermudez/Marcus/Leoitting on: 0 12/08/2024 06:23 AM EDT
--- OUTSIDE RECORDS SUMMARY | 2024-12-08 06:24 | XMS_ITS | Encounter Summary ---
Author Organization [facility] Address [address] [place] [address] [place] [address] Phone Care Team Providers Care Licensed Vocational Nurse Name Role Phone Adriana Galvez MD Primary Care Provider [phone] Encounter Details Date Type Department Care Team (Late Contact Info) Description 08/15/2024 Ancillary Orders [facility],Outside Imaging [address] [place], [place] [phone] System, Provider Not In, PhD [facility] [address] [place] [address] Social History Tobacco Use Types Packs/Day Years Used Date Smoking Tobacco: Never Smokeless Tobacco: Never Alcohol Use Standard Drinks/Week Comments Yes 3 (1 standard drink = 0.6 oz pur e alcohol) Education Answer Date Recorded Are you interested in more education? Not on gonzález e 08/07/2022 Are you concerned about learning? Not on file 08/07/2022 No 08/07/2022 No 08/07/2022 Digital Access Answer Date Recorded No 09/05/2022 No 09/05/2022 Reliable internet access at home? Not on file 09/05/2022 Device with a working camera? Not on file Comments Unknown Sex and Gender Information Value Date Recorded Sex Assigned at Not on file Legal Sex Female 9:50 PM EDT Gender Identity Not on file Sexual Orientation Not on file documented as of this encounter Plan of Treatment Upcoming Encounters Date Type Department Care Team (Late st Contact Info) Description 03/06/2026 8:20 AM EST Office Visit [facility] [address] [place] [address] Kenyatta Boyce MD [address] [place] [phone] [email or web address] documented as of this encounter Results * DXA Outside (No Interpretation) (01/12/2024 12:00 AM EDT) Narrative SYSTEMGENERATED, DOCUMENTATION - 08/15/2024 1:59 PM EDT This study is for PACS storage only and not for interpretation. us Provider Not In System PhD [facility] OUTSIDE IMAGING W /OUT INTERPRETATION Final Result documented in this encounter Visit Diagnoses Not on filedocumented in this encounter Additional Health Concerns Assessment Noted Time PHQ-2 Depression Total Score: 0 07/06/19 18 8:46 AM EDT documented as of this encounter Care Teams Licensed Vocational Nurse Relationship Specialty Start Date End Date Adriana Galvez MD [address] [place] [address] PCP - General Internal Medicine 07/26/24 documented as of this encounter Additional Source Comments The information contained in this document represents components of the legal health record. It is not the complete legal health record.[facility]
--- OUTSIDE RECORDS SUMMARY | 2024-12-08 06:24 | XMS_ITS | Encounter Summary ---
Author Organization [facility] Address [address] [place] [address] [place] [address] Phone Care Team Providers Care General Education Professor Name Role Phone Adriana Galvez MD Primary Care Provider [phone] Encounter Details Date Type Department Care Team (Late Contact Info) Description 08/15/2024 Ancillary Orders [facility],Outside Imaging [address] [place], [place] [id number] System, Provider Not In, PhD [facility] 2 [place] [address] Social History Tobacco Use Types Packs/Day Years [...] EST Office Visit [facility] [address] [place] [address] Kenyatta Boyce MD [address] [address] [email or web address] documented as of this encounter Results * DXA Outside (No Interpretation) (01/01/2020 12:00 AM EDT) Narrative SYSTEMGENERATED, DOCUMENTATION - 08/15/2024 2:10 PM EDT This study is for PACS storage only and not for interpretation. us Provider Not In System PhD IMG OUTSIDE IMAGING W /OUT INTERPRETATION Final Result documented in this encounter Visit Diagnoses Not on filedocumented in this encounter Additional Health Concerns Assessment Noted Time PHQ-2 Depression Total Score: 0 07/06/19 18 8:46 AM EDT documented as of this encounter Care Teams General Education Professor Relationship Specialty Start Date End Date Adriana Galvez MD [address] [facility] [place] [address] PCP - General Internal Medicine 07/26/24 documented as of this encounter Additional Source Comments The information contained in this document represents components of the legal health record. It is not the complete legal health record.[facility]
--- OUTSIDE RECORDS SUMMARY | 2024-12-08 06:24 | XMS_ITS | Encounter Summary ---
Author Organization [facility] Address [address] [place] [address] [place] [address] Phone Care Team Providers Care Toy Painter Name Role Phone Adriana Galvez MD Primary Care Provider [phone] Encounter Details Date Type Department Care Team (Late Contact Info) Description 08/15/2024 Ancillary Orders [facility],Outside Imaging [address] [place], [place] [phone] System, Provider Not In, PhD [facility] 2 [place] [address] Social History Tobacco Use Types Packs/Day Years [...] EST Office Visit [facility] [address] [place] [address] Kenyatta Boyce MD [address] [place] [address] documented as of this encounter Results * DXA Outside (No Interpretation) (01/07/2022 12:00 AM EDT) Narrative SYSTEMGENERATED, DOCUMENTATION - 08/15/2024 2:06 PM EDT This study is for PACS storage only and not for interpretation. us Provider Not In System PhD IMG OUTSIDE IMAGING W /OUT INTERPRETATION Final Result documented in this encounter Visit Diagnoses Not on filedocumented in this encounter Additional Health Concerns Assessment Noted Time PHQ-2 Depression Total Score: 0 07/06/19 18 8:46 AM EDT documented as of this encounter Care Teams Toy Painter Relationship Specialty Start Date End Date Adriana Galvez MD [address] [facility] [place] [address] PCP - General Internal Medicine 07/26/24 documented as of this encounter Additional Source Comments The information contained in this document represents components of the legal health record. It is not the complete legal health record.[facility]
--- OUTSIDE RECORDS SUMMARY | 2024-12-08 06:24 | XMS_ITS | Patient Health Record ---
Author Organization [facility] Address [address] [place] [address] Care Team Providers Care Line Driver Name Role Phone Adriana Galvez MD Primary Care Provider Brian Rubio Unavailable [phone] Allergies No Known Allergies Reason For Referral [...] Status Risk Notes Problem Colon cancer screening (811030147) Colon cancer screening (Z12.11) Active confirmed Problem Pre-procedure evaluation check (411063567) Encounter for other preprocedural examination (Z01.818) Active confirmed Vital Signs Blood pressure diastolic 00 mm Hg 03/28/2024 Height 60 in 03/28/2024 Blood pressure systolic 00 mm Hg 03/28/2024 Weight 122 lbs 03/28/2024 BMI 23.82 kg/m2 03/28/2024 Encounters Encounter Location Date Provider Diagnosis [facility] [address] [place], [place] [phone] 07/24/2024 Brian Humphrey Colon cancer screeni ng Z12.11 ; Other hemorrhoids K64.8 and Diverticulosis of large intestine without perforation or abscess without bleeding K57.30 [facility] [address] [place] [phone] 03/28/2024 Brian Humphrey Colon cancer screeni ng Z12.11 and Encounter for other preprocedural examination Z01.818 [facility] [address] [place] [address] 07/10/2024 Brian Humphrey Assessments Encounter Date Diagnosis (ICD Code) Assessment Notes Treatment Notes Treatment Clinical Notes Section Notes 07/24/2024 Colon cancer screening (ICD-10 - Z12.11) 07/24/2024 Other hemorrhoids (ICD-10 - K64.8) 03/28/2024 Colon cancer screening (ICD-10 - Z12.11) [...] to keep you advised of her progress. 07/24/2024 Diverticulosis of large intestine without perforation or abscess without bleeding (ICD-10 - K57.30) Plan Of Treatment Future Test Test Name Order Date COLONOSCOPY 09/05/2013 COLONOSCOPY 03/28/2024 Insurance Providers Payer Name Payer Address Payer Phone Subscriber Number Group Number Insured Name Patient Relationship to Insured Coverage Start Date Coverage End Date MEDICARE OF [place] [address] [place] [id number] DANIELA REYNOLDS Self - patient is the insured MED[employer] ATTN CLAIMS [address] [place] [address] [id number] DANIELA REYNOLDS Self - patient is the insured Medical (General) History Medical History History ICD Code Flex sig in 1999 and colonos copy 05-18-2003--negative except for internal and external hemorrhoids Denies PA,DM,CVA,Lung disease,renal dise ase Kidney stones Negative screening colonoscopy in 2013 Surgical History Surgery Date(Month/Year) Two C-sections
--- OUTSIDE RECORDS SUMMARY | 2024-12-08 06:24 | XMS_ITS | Clinical Summary ---
Author Organization [facility] Address [address] [place] [address] Phone Care Team Providers Care Frit Mixer Name Role Phone Adriana Galvez MD Primary Care Provider [phone] Allergies No known active allergies Medications multivitamin per tablet 1 TAB Active VITAMIN B COMPLEX ORAL 1 TAB Active CALCIUM ORALIndications :osteoporosis Take 756 mg by mouth daily. Indications: osteoporosis Active CHOLECALCIFEROL , VITAMIN D3, (VITAMIN D3 ORAL)Indication s:osteoporosis Take 1,600 Int'l Units by mouth. Indications: osteoporosis Active azithromycin (ZITHROMAX Z-ZAKAI) 250 MG tabletIndicatio ns:Eustachian tube dysfunction, right Take 2 tablets on day 1, and take 1 tablet on days 2 through 5 for a total of 5 days. 6 tablet 9 Active Active Problems Problem Noted Date Diagnosed Date Hyperlipidemia 07/05/2017 General medical exam 07/05/2017 History of hematuria 07/05/2017 Age-related osteoporosis wit louis current pathological fracture Assessment & Plan (07/26/2024 11:05 AM EDT): 63 yo woman with osteoporosis on previous bone density. No hx fracture. No family history of fracture. Had taken alendronate for ~ 1-1.5 yrs a few years ago, stopped as she preferred to continue to optimize non-pharmacologic efforts. Her most recent bone density was in the osteopenic range, ? If change related to previous alendronate, technical differences in studies +/- increase in degenerative changes in spine. She had been followed by [facility] endocrine & presumably had some evaluation for secondary causes. Will obtain records. She does have a hx of nephrolithiasis w/ pregnancies. She is getting some if not optimal calcium in diet, taking vitamin D & is getting a lot of exercise. She is not at high risk for falls. Reviewed normal bone physiology across the lifespan. Reviewed role of adequate calcium & vitamin D, weight-bearing exercise, avoiding falls and pharmacologic rx with risks/benefits. Advised her to refer to UpToDate patient information @ calcium & vitamin D & prevention and treatment of osteoporosis, beyond the basics for additional information. Will obtain additional records. Will continue to monitor/follow. Encounters Date Type Department Care Team Description 09/21/2024 Orders Only [facility] [address] [place] [address] Kenyatta Boyce MD Age-related osteoporosis without current pathological fracture (Primary Dx) from Last 3 Months Immunizations Immunization Administration Dates Next Due Tdap 07/05/2017,10/11/2007 Family History Medical History Relation Comments Cancer Father Hypertension Mother Relation Status Comments Father (Age 73) Mother Alive Social History Tobacco Use Types Packs/Day Years [...] on file Sexual Orientation Not on file Last Filed Vital Signs Vital Sign Reading Time Taken Comments Blood Pressure 118/78 07/26/2024 9:45 AM EDT Pulse 70 07/26/2024 9:45 AM EDT Temperature 37.3 C (99.1 F) 06/27/2018 10:13 AM EDT Respiratory Rate 16 06/27/2018 10:13 AM EDT Oxygen Saturation 97% 06/27/2018 10:13 AM EDT Inhaled Oxygen Concentration - - Weight 55.6 kg (122 lb 9.6 oz) 07/26/2024 9:45 A M EDT Height 151.1 cm (4' 11.5 ) 07/26/2024 9:45 AM ED T Body Mass Index 24.35 07/26/2024 9:45 AM EDT Plan of Treatment Upcoming Encounters Date Type Department Care Team (Late st Contact Info) Description 03/06/2026 8:20 AM EST Office Visit [facility] [address] [place] [address] Kenyatta Boyce MD [address] [place] [phone] [email or web address] Health Maintenance Due Date Last Done Comments HEPATITIS C SCREENING 1976 HIV ONE-TIME SCREENING (18-6 5 YEARS) 1976 COLOGUARD 12/26/2003 FIT TEST 12/26/2003 FOBT 12/26/2003 SIGMOIDOSCOPY 12/26/2003 VIRTUAL COLONOSCOPY 12/26/2003 PNEUMOCOCCAL VACCINES (50+ years) (1 of 1 - PCV) 2008 ZOSTER VACCINES (1 of 2) 2008 DEPRESSION SCREENING 07/05/2018 07/05/2017 MAMMOGRAM 12/29/2019 12/28/2017, 12/23/2016 LIPID PANEL 10/06/2022 10/06/2017 COVID-19 VACCINE ( - 2023-2 5 season) 2023 OSTEOPOROSIS SCREENING INITI AL (ONE-TIME) 12/26/2023 12/30/2017 COLONOSCOPY 01/02/2024 01/01/2014 COLORECTAL CANCER SCREENING 01/02/2024 Adult Td,Tdap Booster 07/06/2027 07/05/2017 , 10/11/2007 RSV VACCINE (1 - 1-dose 75+ series) 2033 SMOKING STATUS SCREENING (On ce After 26 Yrs) Completed 07/06/2017 HEPATITIS A VACCINES Aged Out No long er eligible based on patient's age to complete this topic HIB VACCINES Aged Out No longer eligi ble based on patient's age to complete this topic MENINGOCOCCAL VACCINES (ACWY) Aged Out No longer eligible based on patient's age to complete this topic MENINGOCOCCAL VACCINES (B) Aged Out N o longer eligible based on patient's age to complete this topic Medical Devices Not on file Procedures Procedure Name Priority Date/Time Associated Diagnosis Comments BD DXA MONITORING Routine 12/30/2017 2:1 9 PM EDT Osteoporosis, unspecified osteoporosis type, unspecified pathological fracture presence HM MAMMOGRAPHY Routine 12/28/2017 OUTSIDE LDL Routine 10/06/2017 from Last 3 Months or Most Recently Relevant to Health Maintenance Results * DXA Monitoring (12/30/2017 2:19 PM EDT) Anatomical Region Laterality Modality Bone Density Bone Density Amaury Franco MD IMG BD BONE DENSITY DEXA Dee l Result * MAMMOGRAPHY FOR RESULT ENTRY ONLY (12/28/2017) Historical Provider HEALTH MAINTENANCE Edited Result - Final * Outside LDL (10/06/2017) Historical Provider LAB BLOOD ORDERABLES Dee l Result from Last 3 Months or Most Recently Relevant to Health Maintenance Insurance MEDICARE PART A & B [employer] SUPPLEMENT MEDICARE PART A & B [employer] MEDEX SUPPLEMENT MEDICARE PART A & B [employer] MEDEX SUPPLEMENT MEDICARE PART A & B [employer] MEDEX SUPPLEMENT MEDICARE PART A & B [employer] CROSS MEDEX SUPPLEMENT MEDICARE PART A & B [employer] MEDEX SUPPLEMENT Care Teams Frit Mixer Relationship Specialty Start Date End Date Adriana Galvez MD [address] [facility] [place] [address] PCP - General Internal Medicine 07/26/24 Additional Source Comments The information contained in this document represents components of the legal health record. It is not the complete legal health record.[facility]
[2024-12-08 07:54] LABS: Alanine Aminotransferase 27 U/L (0-31); Albumin Level 4.5 g/dL (3.5-5.0); Alkaline Phosphatase 54 U/L (39-117); Anion Gap 12 (12-20); Aspartate Amino Transferase 23 U/L (5-31); Blood Urea Nitrogen 17 mg/dL (9-16); Calcium 9.3 mg/dL (8.4-10.2); Carbon Dioxide 27 mmol/L (22-29); Chloride 107 mmol/L (96-108); Estimated Glomerular Filt Rate > 60; Parathyroid Hormone Intact 49.0 pg/mL (8.7-77.1); Potassium 4.2 mmol/L (3.3-5.1); Sodium 142 mmol/L (135-145); Total Protein 6.6 g/dL (6.5-8.0)
[2024-12-12 22:27] LABS: Collagen Type I C-Telopeptide 385 pg/mL (see note)
== END 2024-12-08 06:20 | disposition home or self-care (01) ==
LOC: HO.LAB 06:19
PROVIDERS: Absent Provider Internal Medicine Endocrinology, Diabetes & Metabolism; PCP Internal Medicine; Visit Provider Internal Medicine
DX: M81.0 Age-related osteoporosis without current pathological fracture (principal)
CPT/HCPCS: 36415; 80053; 82306; 82523; 83970; 84100

== ENCOUNTER 2024-12-20 08:31 | Outpatient (AMB) | payer BC, SELFPAY ==
--- OUTSIDE RECORDS SUMMARY | 2024-07-24 04:30 | XMS_ITS ---
Author Organization [facility] Address [address] [place] [address] Care Team Providers Care Retail Loss Prevention Officer Name Role Phone Adriana Galvez MD Primary Care Provider Unavaila Brian Newton [phone] REASON FOR VISIT screening Encounters Encounter Location Date Provider Diagnosis [facility] Outpatient [address] [place] [phone] 07/24/2024 Brian Humphrey Colon cancer scree bruno [...] * ALAN DANIELADOB:[birth year] (63 yo F)Acc No.[id number]:07/24/2024 COLON WITH MAC Patient: DANIELA KOCH Provider: Keaton Humphrey MD :1960 A ge:63 Y S ex:Female Date:07/24/2024 [address] [id number] Pcp:Adriana Galvez MD Subjective: * Chief Complaints: [...] 07/24/2024 Generated for Amparo bermudez/Marcus/Leoitting on: 0 12/20/2024 09:49 AM EDT
[2024-12-20 08:35] VITALS: BP 108/66; PULSE 68; RESP 17; TEMP 36.6; O2SAT 98; BMI 23.8
--- NOTE | 2024-12-20 08:35 | A.OFFPC_ITS ---
Vital Signs 12/20/24 08:35 Height 5 ft Weight 122 lb BMI 23.8 BP 108/66 Blood Pressure Location Lt brachial Position Sitting Respiration 17 Pulse 68 Pulse Source Pulse Oximeter Temp 97.8 F Temp Source Oral Pulse Oximetry (%) 98 Oxygen Delivery Method Room Air Intake Visit Reasons: Annual Intake Note: Pt is here today for PE. Allergies No Known Allergies Allergy (Verified 12/20/24 08:37) Medication List - Last Reconciled 12/20/24 by Adriana Galvez MD cholecalciferol (vitamin D3) 50 mcg PO .twice a day vitamin B complex 1 tab PO DAILY vitamin K2 40 mcg PO DAILY Tobacco use date assessed: 12/20/24 Fall risk assessment: No Falls in past year Last assessed Fall Risk: 12/20/24 Dental Screening Dental Screen Date: 06/14/24 [facility] Medical History (Updated 12/20/24 @ 09:25 by Adriana Galvez MD) Enlarged thyroid History of flexible sigmoidoscopy DDD (degenerative disc disease), lumbosacral Hyperlipidemia Idiopathic hematuria Internal hemorrhoid Nephrolithiasis Osteoporosis Surgical History (Updated 12/20/24 @ 09:23 by Adriana Galvez MD) History of H/O colonoscopy Family History Father Lung cancer Mother No problems noted. Maternal Aunt Lung cancer Liver cancer Breast cancer Maternal Grandfather No problems noted. Maternal Grandmother No problems noted. Paternal Grandfather No problems noted. Paternal Grandmother No problems noted. Brother Mental health disorder Social History Household Members: Spouse Housing: House Are you a primary managed care coordinator to a significant other at home: No Do you presently have visiting nurse or other home services: No 75 years or older and lives alone: No Alcohol intake: current Alcohol intake frequency: a few times a week Alcohol type: hard liquor Patient Tobacco Use Status: Never used Tobacco e-Cigarette/Vaping Use: Never Used service: No Current occupational status: employed Cognitive needs: No Hearing needs: No Vision needs: Yes Questionnaire PHQ-9 Over the last 2 weeks, how often have you been bothered by any of the following problems? 1. Little interest or pleasure in doing things: not at all 2. Feeling down, depressed, or hopeless: not at all 3. Trouble falling or staying asleep, or sleeping too much: not at all 4. Feeling tired or having little energy: not at all 5. Poor appetite or overeating: not at all 6. Feeling bad about yourself - or that you are a failure or have let yourself or your family down: not at all 7. Trouble concentrating on things, such as reading the newspaper or watching television: not at all 8. Moving or speaking so slowly that other people could have noticed. Or the opposite - being so fidgety or restless that you have been moving around a lot more than usual: not at all 9. Thoughts that you would be better off or of hurting yourself in some way: not at all Total score: 0 Depression Screening Interpretation: Negative Depression Screening Done: Yes Source: Developed by Drs. Brian Barbosa, Husam Salazar and colleagues, with an educational parveen from [employer]. Thrive Questionnaire Date Thrive assessed: 06/14/24 MORALES-7 AMB Questionnaire MORALES-7 Date MORALES - 7 assessed: 12/20/24 Feeling nervous, anxious, or on edge: 0 = Not at all Not being able to stop or control worryin = Not at all Worrying too much about different things: 0 = Not at all Trouble relaxin = Not at all Being so restless that it is hard to sit still: 0 = Not at all Becoming easily annoyed or irritable: 0 = Not at all Feeling afraid as if something awful might happen: 0 = Not at all Total MORALES-7 score (0-4 normal; 5-9 mild; 10-14 moderate; 15-21 severe): 0 Source: Developed by Drs. Brian Barbosa, Husam Salazar and colleagues, with an educational parveen from [employer]. MORALES-7 Assessment Billing MORALES-7 Assessment Tool: MORALES-7 Assessment 97287 Review of Systems Const All systems reviewed & are unremarkable except as noted in HPI and below Eyes Reports no additional complaints ENT Reports no additional complaints Card Reports no additional complaints Resp Reports no additional complaints GI Reports no additional complaints Reports no additional complaints Physical exam (Primary Care) Vital Signs: Last Vital Signs Temp 97.8 F 12/20/24 08:35 Pulse 68 12/20/24 08:35 Resp 17 12/20/24 08:35 BP 108/66 12/20/24 08:35 Pulse Ox 98 12/20/24 08:35 Oxygen Delivery Method Room Air 12/20/24 08:35 BMI result Body Mass Index 23.8 Tobacco/Smoking Status: Tobacco use Status Tobacco use date assessed 12/20/24 12/20/24 08:41 Patient Tobacco Use Status Never used Tobacco 12/20/24 08:41 e-Cigarette/Vaping Use Never Used 12/20/24 08:41 PHQ-9: PHQ-9 Score PHQ-9: Total score 0 12/20/24 08:41 Depression Screening Interpretation: Negative Thrive Assessment: Date of Thrive Assessment Date Thrive assessed 06/14/24 12/20/24 08:41 Const General: no acute distress HENMT Head: Yes normal to inspection Ears: TM's normal bilaterally Face and sinus: Yes normal facial exam Throat: Yes posterior oropharynx normal Eyes General: appearance normal, both eyes and all related structures Neck Neck: Yes no lymphadenopathy and Yes supple Thyroid: diffusely enlarged Resp Effort & Inspection: normal respiratory effort Auscultation: clear to auscultation bilaterally Cardio Rhythm: regular rhythm Heart sounds: S1 normal heart sound present and S2 normal heart sound present GI Inspection: Yes normal to inspection Palpation (GI): Soft to palpation Percussion: Yes normal to percussion Auscultation: normal bowel sounds Coding Level of Care Code Est Pt Prev Care >65y(45971) Diagnoses Hyperlipidemia E78.5 Enlarged thyroid E04.9 Age-related osteoporosis without current pathological fracture M81.0 Osteoporosis type: age-related Presence of current pathological fracture: without current pathological fracture Annual physical exam Z00.00 H/O colonoscopy Z98.890 Additional Codes MORALES-7 Assessment Billing - MORALES-7 Assessment Tool: MORALES-7 Assessment 84678 ([id number]) Assessment & Plan Assessment & Plan (1) Hyperlipidemia: Comment: pt declines taking statin Code(s): E78.5 - Hyperlipidemia, unspecified Category: Medical Plan: Continue low-cholesterol diet regular physical activity patient will return for fasting blood work this week, she declined taking statins (2) Enlarged thyroid: Code(s): E04.9 - Nontoxic goiter, unspecified Category: Medical Plan: Check thyroid ultrasound (3) Osteoporosis: Comment: Alendronate: started 07/2018 - January 2020- stopped per patient request DEXA 12/2019 T score -2.2 increased 5.7% after 1.5 years of Fosamax DEXA 01/2024 T score -2.3 L spine Code(s): M81.0 - Age-related osteoporosis without current pathological fracture Category: Medical Qualifiers: Osteoporosis type: age-related Presence of current pathological fracture: without current pathological fracture Qualified Code(s): M81.0 - Age- related osteoporosis without current pathological fracture Plan: Continue vitamin-D supplement and weight-bearing exercises (4) Annual physical exam: Code(s): Z00.00 - Encounter for general adult medical examination without abnormal findings Category: Medical Plan: well balanced diet, regular exercise, up to date with mammogram, pelvic exam, colonoscopy (5) H/O colonoscopy: Comment: Dr. Humphrey 2016, 07/2024 negative Code(s): Z98.890 - Other specified postprocedural states Category: Surgical Plan: done Orders: Orders US thyroid Today E04.9 - Nontoxic goiter, unspecified Complete Blood Count Auto Diff 1 Year E04.9 - Nontoxic goiter, unspecified, E55.9 - Vitamin D deficiency, unspecified, E78.5 - Hyperlipidemia, unspecified, Z00.00 - Encounter for general adult medical examination without abnormal findings Lipid Panel 1 Year E04.9 - Nontoxic goiter, unspecified, E55.9 - Vitamin D deficiency, unspecified, E78.5 - Hyperlipidemia, unspecified, Z00.00 - Encounter for general adult medical examination without abnormal findings UA w Microscopic 1 Year E04.9 - Nontoxic goiter, unspecified, E55.9 - Vitamin D deficiency, unspecified, E78.5 - Hyperlipidemia, unspecified, Z00.00 - Encounter for general adult medical examination without abnormal findings Comprehensive [place]. Panel Fast 1 Year E04.9 - Nontoxic goiter, unspecified, E55.9 - Vitamin D deficiency, unspecified, E78.5 - Hyperlipidemia, unspecified, Z00.00 - Encounter for general adult medical examination without abnormal fi ndings Vitamin D 25-OH Total 1 Year E04.9 - Nontoxic goiter, unspecified, E55.9 - Vitamin D deficiency, unspecified, E78.5 - Hyperlipidemia, unspecified, Z00.00 - Encounter for general adult medical examination without abnormal findings
--- OUTSIDE RECORDS SUMMARY | 2024-12-20 09:49 | XMS_ITS | Encounter Summary ---
Author Organization [facility] Address [address] [place] [address] [place] [address] Phone Care Team Providers Care Residency Program Coordinator Name Role Phone Adriana Galvez MD Primary Care Provider [phone] Encounter Details Date Type Department Care Team (Late Contact Info) Description 08/15/2024 Ancillary Orders [facility],Outside Imaging [address] [place], [place] [id number] System, Provider Not In, PhD Partners [facility] 2 [place] [address] Social History Tobacco Use Types Packs/Day Years [...] EST Office Visit [facility] [address] [place] [address] Kenyatta Boyce MD [address] [place] [address] [email or web address] documented as of this encounter Results * [...] documented as of this encounter Care Teams Residency Program Coordinator Relationship Specialty Start Date End Date Adriana Galvez MD [address] [place] [address] PCP - General Internal Medicine 07/26/24 documented as of this encounter Additional Source Comments The information contained in this document represents components of the legal health record. It is not the complete legal health record.[facility]
--- OUTSIDE RECORDS SUMMARY | 2024-12-20 09:49 | XMS_ITS | Clinical Summary ---
Author Organization [facility] Address [address] [place] [address] Phone Care Team Providers Care Mover Name Role Phone Adriana Galvez MD Primary Care Provider [phone] Allergies No known active allergies Medications multivitamin per tablet 1 TAB Active VITAMIN B COMPLEX ORAL 1 TAB Active CALCIUM ORALIndications :osteoporosis Take 756 mg by mouth daily. Indications: osteoporosis Active CHOLECALCIFEROL , VITAMIN D3, (VITAMIN D3 ORAL)Indication s:osteoporosis Take 1,600 Int'l Units by mouth. Indications: osteoporosis Active azithromycin (ZITHROMAX Z-ZAKIA) 250 MG tabletIndicatio ns:Eustachian tube dysfunction, right [...] in spine. She had been followed by [facility] endocrine & presumably had some evaluation for [...] with risks/benefits. Advised her to refer to [employer] patient information @ calcium & vitamin D & prevention and treatment of osteoporosis, beyond the basics for additional information. Will obtain additional records. Will continue to monitor/follow. Encounters Date Type Department Care Team Description 12/13/2024 Telephone [facility] [address] [place] [address] [place] [phone] Melody Perez MA Labs 09/21/2024 Orders Only [facility] [address] [place] [address] [place] [address] Kenyatta Boyce MD Age-related osteoporosis without current [...] 8:20 AM EST Office Visit [facility] [address] [place] [address] [place] [address] Kenyatta Boyce MD [address] [place] [address] Health Maintenance Due Date Last Done Comments HEPATITIS C SCREENING 1976 HIV ONE-TIME SCREENING (18-6 5 YEARS) 1976 COLOGUARD 12/26/2003 FIT TEST 12/26/2003 FOBT 12/26/2003 SIGMOIDOSCOPY 12/26/2003 VIRTUAL COLONOSCOPY 12/26/2003 PNEUMOCOCCAL VACCINES (50+ years) (1 of 1 - PCV) 2008 ZOSTER VACCINES (1 of 2) 2008 DEPRESSION SCREENING 07/05/2018 07/05/2017 MAMMOGRAM 12/29/2019 12/28/2017, 12/23/2016 LIPID PANEL 10/06/2022 10/06/2017 OSTEOPOROSIS SCREENING INITI AL (ONE-TIME) 12/26/2023 12/30/2017 COLONOSCOPY 01/02/2024 01/01/2014 COLORECTAL CANCER SCREENING 01/02/2024 INFLUENZA VACCINE (#1) 2024 COVID-19 VACCINE ( - 2023-2 5 season) 2024 Adult Td,Tdap Booster 07/06/2027 07/05/2017 , 10/11/2007 [...] unspecified osteoporosis type, unspecified pathological fracture presence MAMMOGRAPHY Routine 12/28/2017 OUTSIDE LDL Routine 10/06/2017 from Last 3 Months or Most Recently Relevant to Health Maintenance Results * DXA Monitoring (12/30/2017 2:19 PM EDT) Anatomical Region Laterality Modality Bone Density Bone Density Amaury Franco MD [facility] BD BONE DENSITY DEXA Dee l Result * MAMMOGRAPHY FOR RESULT ENTRY ONLY (12/28/2017) Historical Provider HEALTH MAINTENANCE Edited Result - Final * Outside LDL (10/06/2017) Historical Provider LAB BLOOD ORDERABLES Dee l Result from Last 3 Months or Most Recently Relevant to Health Maintenance Insurance MEDICARE PART A & B [employer] MEDEX SUPPLEMENT MEDICARE PART A & B [employer] MEDEX SUPPLEMENT MEDICARE PART A & B [employer] MEDEX SUPPLEMENT MEDICARE PART A & B [facility] [employer] MEDEX SUPPLEMENT MEDICARE PART A & B [facility] [employer] MEDEX SUPPLEMENT MEDICARE PART A & B [employer] MEDEX SUPPLEMENT Care Teams Mover Relationship Specialty Start Date End Date Adriana Galvez MD [address] [place] [address] PCP - General Internal Medicine 07/26/24 Additional Source Comments The information contained in this document represents components of the legal health record. It is not the complete legal health record.[facility]
--- OUTSIDE RECORDS SUMMARY | 2024-12-20 09:49 | XMS_ITS | Patient Health Record ---
Author Organization [facility] Address [address] [place] [address] Care Team Providers Care Logging Crew Supervisor Name Role Phone Adriana Galvez MD Primary Care Provider Brian Rubio Unavailable [phone] Allergies No Known Allergies Reason For Referral [...] Status Risk Notes Problem Colon cancer screening (178071996) Colon cancer screening (Z12.11) Active confirmed Problem Pre-procedure evaluation check (442639914) Encounter for other preprocedural examination (Z01.818) Active confirmed Vital Signs Blood pressure diastolic 00 mm Hg 03/28/2024 Height 60 in 03/28/2024 Blood pressure systolic 00 mm Hg 03/28/2024 Weight 122 lbs 03/28/2024 BMI 23.82 kg/m2 03/28/2024 Encounters Encounter Location Date Provider Diagnosis [facility] [place] [address] [place], [place] [phone] 07/24/2024 Brian Humphrey Colon cancer screeni ng Z12.11 ; Other hemorrhoids K64.8 and Diverticulosis of large intestine without perforation or abscess without bleeding K57.30 [facility] [address] [place] [phone] 03/28/2024 Brian Humphrey Colon cancer screeni ng Z12.11 and Encounter for other preprocedural examination Z01.818 [facility] [address] [place] [address] 07/10/2024 Brian Humphrey Assessments Encounter Date Diagnosis [...] OF [place] [address] [place] [address] [phone] [id number] DANIELA REYNOLDS Self - patient is the insured [employer] ATT[employer] CLAIMS [address] [place] [address] [phone] [id number] DANIELA REYNOLDS Self - patient is the insured Medical (General) History Medical History History ICD Code Flex sig in 1999 and colonos copy 05-18-2003--negative except for internal and external hemorrhoids Denies [place],DM,CVA,Lung disease,renal dise ase Kidney stones Negative screening colonoscopy in 2013 Surgical History Surgery Date(Month/Year) Two C-sections
--- OUTSIDE RECORDS SUMMARY | 2024-12-20 09:49 | XMS_ITS | Encounter Summary ---
Author Organization [facility] Address [address] [place] [address] [place] [address] Phone Care Team Providers Care Sales Promoter Name Role Phone Adriana Galvez MD Primary Care Provider [phone] Encounter Details Date Type Department Care Team (Late Contact Info) Description 08/15/2024 Ancillary Orders [facility],Outside Imaging [address] [place], [place] [phone] System, Provider Not In, PhD Partners [facility] [address] [place] [address] Social History Tobacco Use Types Packs/Day Years [...] EST Office Visit [facility] [address] [place] [address] Kenyatta Boyce MD [address] [address] [email or web address] documented as of [...] documented as of this encounter Care Teams Sales Promoter Relationship Specialty Start Date End Date Adriana Galvez MD [address] [facility] [place] [address] PCP - General Internal Medicine 07/26/24 documented as of this encounter Additional Source Comments The information contained in this document represents components of the legal health record. It is not the complete legal health record.[facility]
--- OUTSIDE RECORDS SUMMARY | 2024-12-20 09:49 | XMS_ITS | Encounter Summary ---
Author Organization [facility] Address [address] [place] [address] [place] [address] Phone Care Team Providers Care Circuit Tester Name Role Phone Adriana Galvez MD Primary Care Provider [phone] Encounter Details Date Type Department Care Team (Late Contact Info) Description 08/15/2024 Ancillary Orders [facility],Outside Imaging [address] [place], [place] [phone] System, Provider Not In, PhD Partners [facility] [address] [place] [address] Social History Tobacco Use Types Packs/Day Years [...] EST Office Visit [facility] [address] [place] [address] Kenyatta Boyce MD [address] [place] [address] [email or web address] documented as of this [...] documented as of this encounter Care Teams Circuit Tester Relationship Specialty Start Date End Date Adriana Galvez MD [address] [place] [address] PCP - General Internal Medicine 07/26/24 documented as of this encounter Additional Source Comments The information contained in this document represents components of the legal health record. It is not the complete legal health record.[facility]
--- OUTSIDE RECORDS SUMMARY | 2024-12-20 09:49 | XMS_ITS | Encounter Summary ---
Author Organization [facility] Address [address] [place] [address] Phone Care Team Providers Care Soap Worker Name Role Phone Adriana Galvez MD Primary Care Provider [phone] Reason for Visit * Reason Onset Date Comments Labs 12/13/2024 Encounter Details Date Type Department Care Team (Late st Contact Info) Description 12/13/2024 Telephone [facility] [address] [place] [address] [place] [phone] Melody Perez MA [address] [place] [address] [email or web address] Labs Social History Tobacco Use Types Packs/Day Years [...] on file documented as of this encounter Progress Notes * Melody Perez MA - 12/13/2024 2:29 PM EDT Received labs and they were scanned into the chart to review. documented in this encounter Plan of Treatment Upcoming Encounters Date Type Department Care Team (Late st Contact Info) Description 03/06/2026 8:20 AM EST Office Visit [facility] [address] [place] [address] Kenyatta Boyce MD [address] [address] [email or web address] documented as of this encounter Visit Diagnoses Not on filedocumented in this encounter Additional Health Concerns Assessment Noted Time PHQ-2 Depression Total Score: 0 07/06/19 18 8:46 AM EDT documented as of this encounter Care Teams Soap Worker Relationship Specialty Start Date End Date Adriana Galvez MD [facility] [place] [address] PCP - General Internal Medicine 07/26/24 documented as of this encounter Additional Source Comments The information contained in this document represents components of the legal health record. It is not the complete legal health record.[facility]
== END 2024-12-20 09:17 | disposition home or self-care (01) ==
LOC: HO.HMCC 08:32
PROVIDERS: PCP Internal Medicine; Visit Provider Internal Medicine
DX: E78.5 Hyperlipidemia, unspecified (principal); E04.9 Nontoxic goiter, unspecified; M81.0 Age-related osteoporosis without current pathological fracture; Z00.00 Encounter for general adult medical examination without abnormal findings; Z98.890 Other specified postprocedural states

== ENCOUNTER → 2024-12-20 08:31 | Outpatient (BNVA) | payer BC, SELFPAY | PROVIDERS: PCP Internal Medicine; Visit Provider Internal Medicine | DX: Z00.00 Encounter for general adult medical examination without abnormal findings (principal); E78.5 Hyperlipidemia, unspecified; E04.9 Nontoxic goiter, unspecified; M81.0 Age-related osteoporosis without current pathological fracture; E55.9 Vitamin D deficiency, unspecified; Z98.890 Other specified postprocedural states | CPT/HCPCS: 96127 ==

== ENCOUNTER 2024-12-21 06:14 | Outpatient (REF) | payer MEDICARE, SELFPAY ==
--- OUTSIDE RECORDS SUMMARY | 2024-07-24 04:30 | XMS_ITS ---
Author Organization [facility] Address [address] [place] [address] Care Team Providers Care Delivery Director Name Role Phone Adriana Galvez MD Primary Care Provider Unavaila Brian Newton [phone] REASON FOR VISIT screening Encounters Encounter Location Date Provider Diagnosis [facility] [address] [place] [phone] 07/24/2024 Brian Humphrey Colon cancer scree bruno [...] * ALAN DANIELADOB:[birth year] (63 yo F)Acc No.[id number]:07/24/2024 COLON WITH MAC Patient: DANIELA KOCH Provider: Keaton Humphrey MD :1960 A ge:63 Y S ex:Female Date:07/24/2024 [address] [id number] Pcp:Adriana Galvez MD Subjective: * Chief Complaints: [...] 07/24/2024 Generated for Amparo bermudez/Marcus/Leoitting on: 0 12/21/2024 06:18 AM EDT
--- OUTSIDE RECORDS SUMMARY | 2024-12-21 06:18 | XMS_ITS | Encounter Summary ---
Author Organization [facility] Address [address] [place] [address] Phone Care Team Providers Care Railroad Yard Worker Name Role Phone Adriana Galvez MD Primary Care Provider [phone] Reason for Visit * Reason Onset Date Comments Labs 12/13/2024 Encounter Details Date Type Department Care Team (Late st Contact Info) Description 12/13/2024 Telephone [facility] [address] [place] [address] [place] [phone] Melody Perez MA [address] [place] [address] [email or web address] Labs Social History Tobacco [...] AM EST Office Visit [facility] [address] [place] [address] Kenyatta Boyce MD [address] [address] [email or web address] documented as of this encounter Visit Diagnoses Not on filedocumented in this encounter Additional Health Concerns Assessment Noted Time PHQ-2 Depression Total Score: 0 07/06/19 18 8:46 AM EDT documented as of this encounter Care Teams Railroad Yard Worker Relationship Specialty Start Date End Date Adriana Galvez MD [facility] [place] [address] PCP - General Internal Medicine 07/26/24 documented as of this encounter Additional Source Comments The information contained in this document represents components of the legal health record. It is not the complete legal health record.[facility]
--- OUTSIDE RECORDS SUMMARY | 2024-12-21 06:18 | XMS_ITS | Patient Health Record ---
Author Organization [facility] Address [address] [place] [address] Care Team Providers Care Diet Consultant Name Role Phone Adriana Galvez MD Primary Care Provider Brian Rubio Unavailable [phone] Allergies No Known Allergies Reason For Referral [...] Status Risk Notes Problem Colon cancer screening (087155091) Colon cancer screening (Z12.11) Active confirmed Problem Pre-procedure evaluation check (004770812) Encounter for other preprocedural examination (Z01.818) Active confirmed Vital Signs Blood pressure diastolic 00 mm Hg 03/28/2024 Height 60 in 03/28/2024 Blood pressure systolic 00 mm Hg 03/28/2024 Weight 122 lbs 03/28/2024 BMI 23.82 kg/m2 03/28/2024 Encounters Encounter Location Date Provider Diagnosis [facility] [place] [address] [place], [place] [phone] 07/24/2024 Brian Humphrey Colon cancer screeni ng Z12.11 ; Other hemorrhoids K64.8 and Diverticulosis of large intestine without perforation or abscess without bleeding K57.30 [facility] [address] [place] [phone] 03/28/2024 Brian Humphrey Colon cancer screeni ng Z12.11 and Encounter for other preprocedural examination Z01.818 [facility] [address] [place] [address] 07/10/2024 Brian Humphrey Assessments Encounter Date Diagnosis [...] OF [place] [address] [place] [address] [id number] DANIELA REYNOLDS Self - patient is the insured [employer] ATTN CLAIMS [address] [place] [address] [id number] DANIELA REYNOLDS Self - patient is the insured Medical (General) History Medical History History ICD Code Flex sig in 1999 and colonos copy 05-18-2003--negative except for internal and external hemorrhoids Denies [place],DM,CVA,Lung disease,renal dise ase Kidney stones Negative screening colonoscopy in 2013 Surgical History Surgery Date(Month/Year) Two C-sections
--- OUTSIDE RECORDS SUMMARY | 2024-12-21 06:18 | XMS_ITS | Encounter Summary ---
Author Organization [facility] Address [address] [place] [address] [place] [phone] Phone Care Team Providers Care Frame Table Operator Name Role Phone Adriana Galvez MD Primary Care Provider Encounter Details Date Type Department Care Team (Late Contact Info) Description 08/15/2024 Ancillary Orders [facility],Outside Imaging [address] [place], [place] [id number] System, Provider Not In, PhD [facility] [address] [place] [address] Social History Tobacco Use Types Packs/Day Years [...] EST Office Visit [facility] [address] [place] [address] Kenyatta Boyce MD [address] [place] [address] [email or web address] documented as of this [...] documented as of this encounter Care Teams Frame Table Operator Relationship Specialty Start Date End Date Adriana Galvez MD [address] [facility] [place] [address] PCP - General Internal Medicine 07/26/24 documented as of this encounter Additional Source Comments The information contained in this document represents components of the legal health record. It is not the complete legal health record.[facility]
--- OUTSIDE RECORDS SUMMARY | 2024-12-21 06:18 | XMS_ITS | Encounter Summary ---
Author Organization [facility] Address [address] [place] [address] [place] [address] Phone Care Team Providers Care Clerical Stock Inspector Name Role Phone Adriana Galvez MD Primary Care Provider [phone] Encounter Details Date Type Department Care Team (Late Contact Info) Description 08/15/2024 Ancillary Orders [facility],Outside Imaging [address] [place], [place] [phone] System, Provider Not In, PhD [facility] 2 [place] [address] Social History Tobacco Use Types Packs/Day Years [...] EST Office Visit [facility] [address] [place] [address] Kenyatta Boyce MD [address] [address] [email or web address] documented as of this encounter Results * [...] documented as of this encounter Care Teams Clerical Stock Inspector Relationship Specialty Start Date End Date Adriana Galvez MD [address] [place] [address] PCP - General Internal Medicine 07/26/24 documented as of this encounter Additional Source Comments The information contained in this document represents components of the legal health record. It is not the complete legal health record.[facility]
--- OUTSIDE RECORDS SUMMARY | 2024-12-21 06:18 | XMS_ITS | Encounter Summary ---
Author Organization [facility] Address [address] [place] [address] [place] [address] Phone Care Team Providers Care Shipyard Laborer Name Role Phone Adriana Galvez MD Primary Care Provider [phone] Encounter Details Date Type Department Care Team (Late Contact Info) Description 08/15/2024 Ancillary Orders [facility],Outside Imaging [address] [place], [place] [phone] System, Provider Not In, PhD [facility] 2 [place] [address] Social History Tobacco Use Types Packs/Day Years [...] EST Office Visit [facility] [address] [place] [address] Kenyatta Boyce MD [address] [place] [address] [email or web address] documented as of this encounter Results * [...] documented as of this encounter Care Teams Shipyard Laborer Relationship Specialty Start Date End Date Adriana Galvez MD [address] [place] [address] PCP - General Internal Medicine 07/26/24 documented as of this encounter Additional Source Comments The information contained in this document represents components of the legal health record. It is not the complete legal health record.[facility]
--- OUTSIDE RECORDS SUMMARY | 2024-12-21 06:18 | XMS_ITS | Clinical Summary ---
Author Organization [facility] Address [address] [place] [phone] Phone Care Team Providers Care [employer] Agent Name Role Phone Adriana Galvez MD Primary Care Provider [phone] Allergies No known active allergies Medications multivitamin [...] History of hematuria 07/05/2017 Age-related osteoporosis wit zebut current pathological fracture Assessment & Plan (07/26/2024 [...] in spine. She had been followed by [facility] endocrine & presumably had [...] Type Department Care Team Description 12/13/2024 Telephone [facility] [address] [place] [address] [place] [phone] Melody Perez MA Labs 09/21/2024 Orders Only [facility] [address] [place] [address] [place] [address] Kenyatta Boyce MD Age-related osteoporosis without current [...] 8:20 AM EST Office Visit [facility] [address] [place] [address] [place] [address] Kenyatta Boyce MD [address] [place] [phone] Health Maintenance Due Date Last Done Comments [...] Bone Density Bone Density Amaury Franco [place] [facility]ONE DENSITY DEXA Dee l Result * MAMMOGRAPHY FOR RESULT ENTRY ONLY (12/28/2017) Historical Provider HEALTH MAINTENANCE Edited Result - Final * Outside LDL (10/06/2017) Historical Provider LAB BLOOD ORDERABLES Dee l Result from Last 3 Months or Most Recently Relevant to Health Maintenance Insurance MEDICARE PART A & B [employer] MEDEX SUPPLEMENT MEDICARE PART A & B [employer] MEDEX SUPPLEMENT MEDICARE PART A & B [employer] MEDEX SUPPLEMENT MEDICARE PART A & B [employer] MEDEX SUPPLEMENT MEDICARE PART A & B [employer] MEDEX SUPPLEMENT MEDICARE PART A & B [employer] MEDEX SUPPLEMENT Care Teams [employer] Agent Relationship Specialty Start Date End Date Adriana Galvez MD [address] [place] [address] PCP - General Internal Medicine 07/26/24 Additional Source Comments The information contained in this document represents components of the legal health record. It is not the complete legal health record.[facility]
[2024-12-21 07:29] LABS: Hematocrit 40.6 % (37.0-47.0); Hemoglobin 14.1 g/dl (12.0-16.0); Imm Gran Abs Auto 0.01 X10*3/uL (0.00-0.03); Imm Gran Pct Auto 0.1 % (0.0-0.4); Lymphocytes Absolute Auto 4.8 X10*3/uL (1.2-4.9); MANUAL DIFF FLAG SCAN; Mean Corpuscular HGB Conc 34.7 g/dl (31.0-35.0); Mean Corpuscular Hemoglobin 34.0 pg (27.0-33.0); Mean Corpuscular Volume 97.8 fL (80.0-98.0); NRBC Abs Auto 0.000 X10*3/uL (0.0-0.012); NRBC Pct Auto 0.0 /100WBC (0.0-0.2); Platelet Count 205 X10*3/uL (160-400); Red Blood Count 4.15 X10*6/uL (4.20-5.50); SCAN SMEAR FLAG 1; White Blood Count 9.0 X10*3/uL (4.8-10.8)
[2024-12-21 08:04] LABS: Cholesterol 243 mg/dL (<200); HDL Cholesterol 77 mg/dL (>40); Triglycerides 71 mg/dL (<150)
== END 2024-12-21 06:15 | disposition home or self-care (01) ==
LOC: HO.LAB 06:14
PROVIDERS: PCP Internal Medicine; Visit Provider Internal Medicine
DX: Z00.00 Encounter for general adult medical examination without abnormal findings (principal); E78.5 Hyperlipidemia, unspecified; E55.9 Vitamin D deficiency, unspecified
CPT/HCPCS: 36415; 80061; 84443; 85025

== ENCOUNTER 2025-02-12 08:08 | Outpatient (REF) | payer MEDICARE, SELFPAY ==
--- NOTE | ~2025-02-12 | US_ITS ---
EXAMINATION: US THYROID HISTORY: E04.9 - Nontoxic goiter, unspecified TECHNIQUE: Real-time grayscale ultrasound imaging was performed and images were reviewed. COMPARISON: There are no prior studies available for comparison. FINDINGS: SIZE: The right thyroid lobe measures 5.1 x 1.1 x 1.8 cm. The left thyroid lobe measures 5.2 x 1.0 x 1.3 cm. The isthmus measures 3 mm. FLOW: Flow to the gland is normal. ECHOGENICITY: The echotexture of the gland is heterogeneous. NODULES: Multiple nodules are noted as described below: Nodule #: 1 Location: Midportion of the right thyroid lobe measuring 10 x 5 x 9 mm. Shape: Wider than tall (0 points) Margins: Smooth (0 points) Echotexture: n/a Composition: Spongiform (0 points) Calcifications: None (0 points) Total points: 0 TIRADS: TR1: Benign Nodule #: 2 Location: Right lower pole measuring 8 x 8 x 8 mm. Shape: Round (0 points) Margins: Ill-defined (0 points) Echotexture: Hypoechoic (2 points) Composition: Solid (2 points) Calcifications: Rim calcification (2 points) Total points: 6 TIRADS: TR4: Moderately suspicious. Nodule #: 3 Location: Midportion of the left thyroid lobe measuring 5 x 4 x 5 mm. Shape: Wider than tall (0 points) Margins: Smooth (0 points) Echotexture: Anechoic (0 points) Composition: Indeterminate (2 points) Calcifications: Punctate calcifications (3 points) Total points: 5 TIRADS: TR4: Moderately suspicious. Nodule #: 4 Location: Lower pole of the left thyroid lobe measuring 9 x 5 x 11 mm. Shape: Wider than tall (0 points) Margins: Smooth (0 points) Echotexture: Hypoechoic (2 points) Composition: Solid (2 points) Calcifications: Punctate calcifications (3 points) Total points: 7 TIRADS: TR5: Highly suspicious. US/US thyroid IMPRESSION: Highly suspicious nodule at the lower pole of the left thyroid lobe (nodule #4 above). According to ACR TI-RADS guidelines below, ultrasound-guided fine-needle aspiration is recommended. ACR TI-RADS Guidelines TR1 (0 points): Benign. No follow-up or biopsy required TR2 (2 points): Not Suspicious. No biopsy or follow up indicated TR3 (3 points): Mildly Suspicious. FNA if >= 2.5 cm, Follow if >= 1.5 cm TR4 (4-6 points): Moderately Suspicious. FNA if >= 1.5 cm, Follow if >= 1.0 cm TR5 (>=7 points): Highly Suspicious. FNA if >= 1.0 cm, Follow if >= 0.5 cm Electronically signed by: Brian Duong MD 02/12/2025 08:44 AM [facility]
== END 2025-02-12 08:09 | disposition home or self-care (01) ==
LOC: HO.US 08:08
PROVIDERS: PCP Internal Medicine; Visit Provider Internal Medicine
DX: E04.9 Nontoxic goiter, unspecified (principal)
CPT/HCPCS: 76536

== ENCOUNTER → 2025-02-12 08:09 | Outpatient (BNV) | payer MEDICARE, SELFPAY | PROVIDERS: PCP Internal Medicine; Visit Provider Radiology Diagnostic Radiology | DX: E04.9 Nontoxic goiter, unspecified (principal) | CPT/HCPCS: 76536 ==